=== PATIENT | male | born 1950 | race Caucasian/White ===

== ENCOUNTER 2018-10-15 15:35 | Outpatient (REF) | payer MEDICARE, BC, SELFPAY ==
[2018-10-15 21:49] LABS: HCT 30.7 % (40.0-50.0); HGB 9.6 g/dL (13.5-17.5); Mean Corp. HGB Concentration 31.3 g/dL (32.0-36.0); Mean Corpuscular Volume 92.7 fL (80-95); Mean Platelet Volume 9.8 fL (8.0-11.0); RBC 3.31 m/cumm (4.50-6.00); RBC Distribution Width 19.8 % (11.8-14.1); White Blood Cell Count 5.26 k/cumm (4.4-10.8)
== END 2018-10-15 15:55 ==
LOC: NCHCN 15:35
PROVIDERS: PCP Internal Medicine; Visit Provider Registered Nurse
DX: D69.6 Thrombocytopenia, unspecified (principal)
CPT/HCPCS: 85027

== ENCOUNTER 2019-05-19 09:08 | Outpatient (REF) | payer MEDICARE, BC, SELFPAY ==
[2019-05-19 21:14] LABS: HGB 12.3 g/dL (13.5-17.5); Mean Corp. HGB Concentration 33.2 g/dL (32.0-36.0); Mean Corpuscular Hemoglobin 29.6 pg (27.0-33.0); Mean Corpuscular Volume 88.9 fL (80-95); Mean Platelet Volume 9.1 fL (8.0-11.0); Platelet Count 243 x1000/uL (130-400); RBC 4.16 m/cumm (4.50-6.00); RBC Distribution Width 16.1 % (11.8-14.1); White Blood Cell Count 9.91 k/cumm (4.4-10.8)
[2019-05-19 21:29] LABS: ALT 40 U/L (16-63); AST 48 U/L (15-37); Albumin 3.7 g/dL (3.4-5.0); Alkaline Phosphatase 128 U/L (46-116); Anion Gap 14.2 mmol/L (3-11); BUN 22 mg/dL (7-18); Bilirubin, Total 0.3 mg/dL (0.2-1.0); CO2 23.8 mmol/L (21.0-32.0); CREATININE 1.61 mg/dL (0.70-1.30); Calcium 8.9 mg/dL (8.5-10.1); Chloride 102 mmol/L (98-107); Estimated GFR 43.02 (mL/min/1.73m2); Glucose 114 mg/dL (74-106); Sodium 140 mmol/L (136-145)
[2019-05-19 21:31] LABS: Prothrombin Time 9.9 sec (9.3-11.0)
== END 2019-05-19 09:28 ==
LOC: NCHCN 09:08
PROVIDERS: PCP Internal Medicine; Visit Provider Nurse Practitioner Family
DX: D64.9 Anemia, unspecified (principal); K70.30 Alcoholic cirrhosis of liver without ascites; F10.20 Alcohol dependence, uncomplicated
CPT/HCPCS: 80053; 85027; 85610

== ENCOUNTER 2019-06-30 11:30 | Outpatient (REF) | payer MEDICARE, BC, SELFPAY ==
[2019-06-30 20:40] LABS: Abs Immature Grans 0.07 k/cumm (0.0-0.09); Absolute Basophil Count 0.02 k/cumm (0.0-0.2); Absolute Eosinophil Count 0.08 k/cumm (0.0-0.7); Absolute Lymphocyte Count 0.62 k/cumm (1.2-3.4); Absolute Monocyte Count 0.64 k/cumm (0.11-0.7); Absolute Neutrophil Count 4.05 k/cumm (1.2-6.7); Basophils % 0.4; Eosinophils % 1.5; HCT 35.5 % (40.0-50.0); HGB 11.5 g/dL (13.5-17.5); Immature Grans % 1.3 %; Lymphocytes % 11.3; Mean Corp. HGB Concentration 32.4 g/dL (32.0-36.0); Mean Corpuscular Hemoglobin 29.9 pg (27.0-33.0); Mean Corpuscular Volume 92.2 fL (80-95); Mean Platelet Volume 8.9 fL (8.0-11.0); Monocytes % 11.7; Neutrophils % 73.8; Platelet Count 182 x1000/uL (130-400); RBC 3.85 m/cumm (4.50-6.00); RBC Distribution Width 16.3 % (11.8-14.1); White Blood Cell Count 5.48 k/cumm (4.4-10.8)
[2019-06-30 20:55] LABS: ALT 44 U/L (16-63); AST 41 U/L (15-37); Albumin 3.5 g/dL (3.4-5.0); Alkaline Phosphatase 147 U/L (46-116); Anion Gap 8.8 mmol/L (3-11); BUN 18 mg/dL (7-18); Bilirubin, Total 0.8 mg/dL (0.2-1.0); CO2 27.2 mmol/L (21.0-32.0); CREATININE 1.55 mg/dL (0.70-1.30); Calcium 9.8 mg/dL (8.5-10.1); Chloride 101 mmol/L (98-107); Estimated GFR 44.95 (mL/min/1.73m2); Glucose 130 mg/dL (74-106); Magnesium 1.6 mg/dL (1.8-2.4); Potassium 3.7 mmol/L (3.5-5.1); Sodium 137 mmol/L (136-145); Total Protein 7.5 g/dL (6.4-8.2)
== END 2019-06-30 11:50 ==
LOC: NCHCN 11:30
PROVIDERS: PCP Internal Medicine; Visit Provider Nurse Practitioner Family
DX: E83.42 Hypomagnesemia (principal); N17.9 Acute kidney failure, unspecified; F10.20 Alcohol dependence, uncomplicated; K70.30 Alcoholic cirrhosis of liver without ascites
CPT/HCPCS: 80053; 83735; 85025

== ENCOUNTER 2019-09-08 09:41 | Outpatient (REF) | payer MEDICARE, BC, SELFPAY ==
[2019-09-08 19:34] LABS: HCT 37.2 % (40.0-50.0); HGB 11.9 g/dL (13.5-17.5); Mean Corpuscular Hemoglobin 29.5 pg (27.0-33.0); Mean Corpuscular Volume 92.3 fL (80-95); Mean Platelet Volume 9.4 fL (8.0-11.0); Platelet Count 175 x1000/uL (130-400); RBC 4.03 m/cumm (4.50-6.00); RBC Distribution Width 15.8 % (11.8-14.1); White Blood Cell Count 4.09 k/cumm (4.4-10.8)
[2019-09-08 19:54] LABS: ALT 48 U/L (16-63); AST 45 U/L (15-37); Albumin 3.6 g/dL (3.4-5.0); Alkaline Phosphatase 167 U/L (46-116); Anion Gap 12.8 mmol/L (3-11); BUN 22 mg/dL (7-18); Bilirubin, Total 0.6 mg/dL (0.2-1.0); CO2 25.2 mmol/L (21.0-32.0); CREATININE 1.59 mg/dL (0.70-1.30); Calcium 9.3 mg/dL (8.5-10.1); Chloride 99 mmol/L (98-107); Estimated GFR 43.64 (mL/min/1.73m2); Glucose 203 mg/dL (74-106); Magnesium 1.7 mg/dL (1.8-2.4); Potassium 3.9 mmol/L (3.5-5.1); Sodium 137 mmol/L (136-145); Total Protein 7.6 g/dL (6.4-8.2)
== END 2019-09-08 10:01 ==
LOC: NCHCN 09:41
PROVIDERS: PCP Nurse Practitioner Family; Visit Provider Nurse Practitioner Family
DX: E83.42 Hypomagnesemia (principal); D64.9 Anemia, unspecified; N17.9 Acute kidney failure, unspecified; F10.20 Alcohol dependence, uncomplicated; K70.30 Alcoholic cirrhosis of liver without ascites
CPT/HCPCS: 80053; 85027; 83735

== ENCOUNTER 2019-09-29 11:13 | Outpatient (REF) | payer MEDICARE, BC, SELFPAY ==
[2019-09-29 19:52] LABS: ALT 82 U/L (16-63); AST 69 U/L (15-37); Albumin 3.5 g/dL (3.4-5.0); Alkaline Phosphatase 193 U/L (46-116); BUN 20 mg/dL (7-18); Bilirubin, Total 1.1 mg/dL (0.2-1.0); CREATININE 1.43 mg/dL (0.70-1.30); Calcium 8.9 mg/dL (8.5-10.1); Chloride 100 mmol/L (98-107); Estimated GFR 49.33 (mL/min/1.73m2); Glucose 169 mg/dL (74-106); Potassium 3.2 mmol/L (3.5-5.1); Sodium 138 mmol/L (136-145); Total Protein 7.4 g/dL (6.4-8.2)
== END 2019-09-29 11:33 ==
LOC: NCHCN 11:13
PROVIDERS: PCP Nurse Practitioner Family; Visit Provider Nurse Practitioner Family
DX: E11.9 Type 2 diabetes mellitus without complications (principal); I10 Essential (primary) hypertension; F10.20 Alcohol dependence, uncomplicated; K70.30 Alcoholic cirrhosis of liver without ascites
CPT/HCPCS: 80053; 83036

== ENCOUNTER 2019-10-13 08:46 | Outpatient (REF) | payer MEDICARE, BC, SELFPAY ==
[2019-10-13 20:33] LABS: Abs Immature Grans 0.05 10^3/uL (0.0-0.06); Absolute Basophil Count 0.01 10^3/uL (0.0-0.2); Absolute Eosinophil Count 0.02 10^3/uL (0.0-0.7); Absolute Lymphocyte Count 0.29 10^3/uL (1.2-3.4); Absolute Monocyte Count 0.19 10^3/uL (0.1-0.8); Absolute Neutrophil Count 3.06 10^3/uL (1.2-6.7); Basophils % 0.3; Eosinophils % 0.6; HCT 33.4 % (40.0-50.0); HGB 10.9 g/dL (13.5-17.5); Immature Grans % 1.4; MCH 30.4 pg (27.0-33.0); MCHC 32.6 % (32.0-36.0); MPV 11.3 fL (8.0-11.0); Monocytes % 5.2; Neutrophils % 84.5; Nucleated RBC 0 %; RBC 3.59 10^6/uL (4.36-5.78); RDW 17.1 % (11.8-14.1); RDW-SD 57.9 fL; WBC 3.62 10^3/uL (4.4-10.8)
[2019-10-13 20:59] LABS: Platelet Count 78 10^3/uL (130-400)
[2019-10-13 21:10] LABS: ALT 70 U/L (16-63); AST 93 U/L (15-37); Albumin 3.6 g/dL (3.4-5.0); Alkaline Phosphatase 230 U/L (46-116); Anion Gap 13.2 mmol/L (3-11); BUN 21 mg/dL (7-18); CO2 22.8 mmol/L (21.0-32.0); CREATININE 1.44 mg/dL (0.70-1.30); Chloride 99 mmol/L (98-107); Estimated GFR 48.93 (mL/min/1.73m2); Glucose 199 mg/dL (74-106); Potassium 4.3 mmol/L (3.5-5.1); Sodium 135 mmol/L (136-145)
== END 2019-10-13 09:06 ==
LOC: NCHCN 08:46
PROVIDERS: PCP Nurse Practitioner Family; Visit Provider Nurse Practitioner Family
DX: K70.30 Alcoholic cirrhosis of liver without ascites (principal); E87.6 Hypokalemia; I10 Essential (primary) hypertension; N18.3 Chronic kidney disease, stage 3 (moderate)
CPT/HCPCS: 80053; 85025

== ENCOUNTER 2019-11-11 09:30 | Outpatient (REF) | payer MEDICARE, BC, SELFPAY ==
[2019-11-11 20:52] LABS: Abs Immature Grans 0.03 10^3/uL (0.0-0.06); Absolute Basophil Count 0.02 10^3/uL (0.0-0.2); Absolute Eosinophil Count 0.05 10^3/uL (0.0-0.7); Absolute Lymphocyte Count 0.61 10^3/uL (1.2-3.4); Absolute Monocyte Count 0.64 10^3/uL (0.1-0.8); Absolute Neutrophil Count 2.23 10^3/uL (1.2-6.7); Basophils % 0.6; Eosinophils % 1.4; HCT 35.6 % (40.0-50.0); HGB 11.7 g/dL (13.5-17.5); Immature Grans % 0.8; MCH 30.3 pg (27.0-33.0); MCHC 32.9 % (32.0-36.0); MCV 92.2 fL (80-95); MPV 9.4 fL (8.0-11.0); Monocytes % 17.9; Neutrophils % 62.3; Nucleated RBC 0 %; Platelet Count 143 10^3/uL (130-400); RBC 3.86 10^6/uL (4.36-5.78); RDW 16.4 % (11.8-14.1); RDW-SD 55.5 fL; WBC 3.58 10^3/uL (4.4-10.8)
[2019-11-11 21:45] LABS: ALT 61 U/L (16-63); AST 53 U/L (15-37); Albumin 3.8 g/dL (3.4-5.0); Alkaline Phosphatase 194 U/L (46-116); Anion Gap 9.7 mmol/L (3-11); BUN 21 mg/dL (7-18); Bilirubin, Total 0.7 mg/dL (0.2-1.0); CO2 25.3 mmol/L (21.0-32.0); CREATININE 1.48 mg/dL (0.70-1.30); Calcium 9.6 mg/dL (8.5-10.1); Chloride 102 mmol/L (98-107); Estimated GFR 47.41 (mL/min/1.73m2); Glucose 144 mg/dL (74-106); Potassium 3.9 mmol/L (3.5-5.1); Sodium 137 mmol/L (136-145); Total Protein 8.1 g/dL (6.4-8.2); Vitamin B12 1219 pg/mL (193-986)
[2019-11-11 21:48] LABS: Folate > 20.0 ng/mL (8.6-20.0)
== END 2019-11-11 09:50 ==
LOC: NCHCN 09:30
PROVIDERS: PCP Nurse Practitioner Family; Visit Provider Nurse Practitioner Family
DX: D64.9 Anemia, unspecified (principal); K70.30 Alcoholic cirrhosis of liver without ascites
CPT/HCPCS: 80053; 82607; 82746; 85025

== ENCOUNTER 2020-01-11 16:48 | Outpatient (REF) | payer MEDICARE, BC, SELFPAY ==
[2020-01-11 21:49] LABS: HCT 32.1 % (40.0-50.0); HGB 10.3 g/dL (13.5-17.5); MCH 30.7 pg (27.0-33.0); MCHC 32.1 % (32.0-36.0); MCV 95.5 fL (80-95); Platelet Count 119 10^3/uL (130-400); RBC 3.36 10^6/uL (4.36-5.78); RDW 15.7 % (11.8-14.1); RDW-SD 55.6 fL; WBC 3.07 10^3/uL (4.4-10.8)
[2020-01-11 22:53] LABS: ALT 67 U/L (16-63); AST 53 U/L (15-37); Albumin 3.6 g/dL (3.4-5.0); Alkaline Phosphatase 229 U/L (46-116); Anion Gap 7.6 mmol/L (3-11); BUN 26 mg/dL (7-18); Bilirubin, Total 0.5 mg/dL (0.2-1.0); CO2 27.4 mmol/L (21.0-32.0); CREATININE 1.88 mg/dL (0.70-1.30); Calcium 9.6 mg/dL (8.5-10.1); Chloride 100 mmol/L (98-107); Estimated GFR 35.86 (mL/min/1.73m2); Glucose 135 mg/dL (74-106); Magnesium 1.7 mg/dL (1.8-2.4); Potassium 4.1 mmol/L (3.5-5.1); Sodium 135 mmol/L (136-145); Total Protein 7.6 g/dL (6.4-8.2)
== END 2020-01-11 17:08 ==
LOC: NCHCN 16:48
PROVIDERS: PCP Nurse Practitioner Family; Visit Provider Nurse Practitioner Family
DX: F10.20 Alcohol dependence, uncomplicated (principal); D64.9 Anemia, unspecified; E83.42 Hypomagnesemia
CPT/HCPCS: 80053; 85027; 83735

== ENCOUNTER 2020-01-21 20:59 | Outpatient (REF) | payer MEDICARE, BC, SELFPAY ==
[2020-01-21 21:49] LABS: ALT 38 U/L (16-63); AST 41 U/L (15-37); Albumin 3.6 g/dL (3.4-5.0); Alkaline Phosphatase 203 U/L (46-116); Anion Gap 12.2 mmol/L (3-11); BUN 19 mg/dL (7-18); Bilirubin, Total 0.4 mg/dL (0.2-1.0); CO2 22.8 mmol/L (21.0-32.0); CREATININE 1.53 mg/dL (0.70-1.30); Chloride 103 mmol/L (98-107); Estimated GFR 45.49 (mL/min/1.73m2); Glucose 101 mg/dL (74-106); Potassium 3.9 mmol/L (3.5-5.1); Sodium 138 mmol/L (136-145); Total Protein 7.9 g/dL (6.4-8.2)
== END 2020-01-21 21:19 ==
LOC: NCHCN 20:59
PROVIDERS: PCP Nurse Practitioner Family; Visit Provider Nurse Practitioner Family
DX: K70.30 Alcoholic cirrhosis of liver without ascites (principal); N18.30 Chronic kidney disease, stage 3 unspecified
CPT/HCPCS: 80053

== ENCOUNTER 2020-12-07 09:27 | Outpatient (REF) | payer MEDICARE, BC, SELFPAY ==
[2020-12-07 15:39] LABS: ALT 28 U/L (16-63); AST 35 U/L (15-37); Alkaline Phosphatase 137 U/L (46-116); Anion Gap 13.4 mmol/L (3-11); BUN 23 mg/dL (7-18); Bilirubin, Total 0.7 mg/dL (0.2-1.0); CO2 26.6 mmol/L (21.0-32.0); CREATININE 1.3 mg/dL (0.70-1.30); Calcium 9.5 mg/dL (8.5-10.1); Chloride 102 mmol/L (98-107); Glucose 146 mg/dL (74-106); Potassium 3.7 mmol/L (3.5-5.1); Sodium 142 mmol/L (136-145); Total Protein 8.3 g/dL (6.4-8.2)
[2020-12-07 15:46] LABS: Bacteria Negative HPF (Negative); C & S Indicated? No; Casts Negative LPF (Negative); Crystals Negative HPF (Negative); Epithelial Cells Negative HPF (Negative); Mucus Negative (Negative); Other Cells Negative (Negative); RBC 0-2 HPF (0-2); WBC 0-2 HPF (0-5)
[2020-12-07 15:48] LABS: COMMENT (LAB VIEW ONLY) 106.15 mg/dL
[2020-12-07 20:56] LABS: Calculated LDL 75 mg/dL (<100); Cholesterol 206 mg/dL (<200); HDL Cholesterol 108 mg/dL (40-60); Triglyceride 119 mg/dL (<150)
[2020-12-07 22:55] LABS: PSA, Screening 1.3 ng/mL (0.0-4.5)
[2020-12-08 09:37] LABS: HBs Antibody, Quant <3.1 mIU/mL (See Note); Hepatitis B Surface Ab Negative (See Note)
[2020-12-08 10:33] LABS: Hepatitis C Ab w Rflx HCV PCR Negative (Negative)
== END 2020-12-07 09:28 | disposition home or self-care (01) ==
LOC: NCHCN 09:27
PROVIDERS: PCP Nurse Practitioner Family; Visit Provider Nurse Practitioner Family
DX: R35.0 Frequency of micturition; K70.30 Alcoholic cirrhosis of liver without ascites; R39.9 Unspecified symptoms and signs involving the genitourinary system; Z00.00 Encounter for general adult medical examination without abnormal findings; Z12.5 Encounter for screening for malignant neoplasm of prostate; Z11.59 Encounter for screening for other viral diseases
CPT/HCPCS: 80053; 80061; 84153; 86706; 86803; 81015; 82043; 82570; 83001; 85025

== ENCOUNTER 2020-12-14 10:07 | Outpatient (REF) | payer MEDICARE, BC, SELFPAY ==
[2020-12-14 15:09] LABS: Total Protein 8.5 g/dL (6.4-8.2)
== END 2020-12-14 10:08 | disposition home or self-care (01) ==
LOC: NCHCN 10:07
PROVIDERS: PCP Nurse Practitioner Family; Visit Provider Nurse Practitioner Family
DX: K70.30 Alcoholic cirrhosis of liver without ascites (principal)
CPT/HCPCS: 85027; 84155

== ENCOUNTER 2021-03-08 18:54 | Outpatient (REF) | payer MEDICARE, SELFPAY ==
[2021-03-08 15:46] LABS: COMMENT (LAB VIEW ONLY) 161.44 mg/dL
[2021-03-08 15:49] LABS: Microalb ug/mg Crea 371.6 ug/mg Cr
== END 2021-03-08 18:55 | disposition home or self-care (01) ==
LOC: NCHCN 18:54
PROVIDERS: PCP Nurse Practitioner Family; Visit Provider Nurse Practitioner Family
DX: E11.9 Type 2 diabetes mellitus without complications (principal); I10 Essential (primary) hypertension; N18.30 Chronic kidney disease, stage 3 unspecified; K70.30 Alcoholic cirrhosis of liver without ascites
CPT/HCPCS: 82043; 82570

== ENCOUNTER 2022-03-12 13:06 | Outpatient (REF) | payer MEDICARE, SELFPAY ==
[2022-03-12 17:26] LABS: COMMENT (LAB VIEW ONLY) 77.24 mg/dL
[2022-03-12 17:30] LABS: Microalb ug/mg Crea 345.3 ug/mg Cr
== END 2022-03-12 13:07 | disposition home or self-care (01) ==
LOC: NCHCN 13:06
PROVIDERS: PCP Nurse Practitioner Family; Visit Provider Nurse Practitioner Family
DX: E11.9 Type 2 diabetes mellitus without complications (principal)
CPT/HCPCS: 82043; 82570

== ENCOUNTER 2022-08-16 14:54 | Outpatient (REF) | payer MEDICARE, SELFPAY ==
[2022-08-16 15:49] LABS: Abs Immature Grans 0.02 10^3/uL (0.0-0.06); Absolute Basophil Count 0.03 10^3/uL (0.0-0.2); Absolute Monocyte Count 0.49 10^3/uL (0.1-0.8); Absolute Neutrophil Count 1.97 10^3/uL (1.2-6.7); Eosinophils % 3.2; HCT 34.8 % (40.0-50.0); HGB 11.9 g/dL (13.5-17.5); Immature Grans % 0.6; Lymphocytes % 16.1; MCH 32.3 pg (27.0-33.0); MCHC 34.2 % (32.0-36.0); MCV 95 fL (80-95); MPV 9.6 fL (8.0-11.0); Monocytes % 15.8; Neutrophils % 63.3; Platelet Count 105 10^3/uL (130-400); RBC 3.68 10^6/uL (4.36-5.78); RDW-SD 52.6 fL; WBC 3.11 10^3/uL (4.4-10.8)
[2022-08-16 16:05] LABS: ALT 18 U/L (16-63); AST 25 U/L (15-37); Albumin 3.5 g/dL (3.4-5.0); Alkaline Phosphatase 124 U/L (46-116); Anion Gap 9.1 mmol/L (3-11); BUN 14 mg/dL (7-18); Bilirubin, Total 0.5 mg/dL (0.2-1.0); CO2 25.9 mmol/L (21.0-32.0); CREATININE 1.4 mg/dL (0.70-1.30); Calcium 8.8 mg/dL (8.5-10.1); Calculated LDL 86 mg/dL (<100); Chloride 103 mmol/L (98-107); Cholesterol 221 mg/dL (<200); Estimated GFR 54.07 (mL/min/1.73m2); Glucose 168 mg/dL (74-106); HDL Cholesterol 129 mg/dL (40-60); Magnesium 1.7 mg/dL (1.8-2.4); Potassium 3.1 mmol/L (3.5-5.1); Sodium 138 mmol/L (136-145); Total Protein 7.1 g/dL (6.4-8.2); Triglyceride 32 mg/dL (<150)
== END 2022-08-16 14:55 | disposition home or self-care (01) ==
LOC: NCHCN 14:54
PROVIDERS: PCP Nurse Practitioner Family; Visit Provider Family Medicine
DX: I10 Essential (primary) hypertension (principal); D64.9 Anemia, unspecified; Z13.220 Encounter for screening for lipoid disorders; N18.31 Chronic kidney disease, stage 3a
CPT/HCPCS: 80053; 80061; 83735; 85025

== ENCOUNTER 2022-08-23 21:07 | Outpatient (REF) | payer MEDICARE, SELFPAY ==
[2022-08-23 21:33] LABS: Iron 227 ug/dL (65-175); Total Iron Binding Capacity 311 ug/dL (250-450); Transferrin Sat 73 % (20-55)
[2022-08-23 21:45] LABS: Ferritin 169 ng/mL (26-388)
== END 2022-08-23 21:08 | disposition home or self-care (01) ==
LOC: NCHCN 21:07
PROVIDERS: PCP Nurse Practitioner Family; Visit Provider Family Medicine
DX: D64.9 Anemia, unspecified (principal)
CPT/HCPCS: 82728; 83540; 83550

== ENCOUNTER 2023-02-19 14:57 | Outpatient (REF) | payer MEDICARE, SELFPAY ==
[2023-02-19 21:25] LABS: Abs Immature Grans 0.03 10^3/uL (0.0-0.06); Absolute Basophil Count 0.01 10^3/uL (0.0-0.2); Absolute Eosinophil Count 0.05 10^3/uL (0.0-0.7); Absolute Lymphocyte Count 0.26 10^3/uL (1.2-3.4); Absolute Monocyte Count 0.39 10^3/uL (0.1-0.8); Absolute Neutrophil Count 2.65 10^3/uL (1.2-6.7); Basophils % 0.3; Eosinophils % 1.5; HCT 35.2 % (40.0-50.0); Immature Grans % 0.9; Lymphocytes % 7.7; MCHC 34.1 % (32.0-36.0); MCV 94 fL (80-95); MPV 8.9 fL (8.0-11.0); Monocytes % 11.5; Neutrophils % 78.1; Platelet Count 109 10^3/uL (130-400); RBC 3.75 10^6/uL (4.36-5.78); RDW 13.6 % (11.8-14.1); RDW-SD 47.3 fL; WBC 3.39 10^3/uL (4.4-10.8)
[2023-02-19 21:38] LABS: ALT 32 U/L (16-63); AST 38 U/L (15-37); Albumin 3.8 g/dL (3.4-5.0); Alkaline Phosphatase 159 U/L (46-116); Anion Gap 12.9 mmol/L (3-11); BUN 19 mg/dL (7-18); Bilirubin, Total 0.7 mg/dL (0.2-1.0); CO2 25.1 mmol/L (21.0-32.0); CREATININE 1.4 mg/dL (0.70-1.30); Calcium 9.5 mg/dL (8.5-10.1); Chloride 102 mmol/L (98-107); Estimated GFR 53.74 (mL/min/1.73m2); Glucose 125 mg/dL (74-106); Magnesium 2.1 mg/dL (1.8-2.4); Potassium 3.9 mmol/L (3.5-5.1); Sodium 140 mmol/L (136-145); Total Protein 7.8 g/dL (6.4-8.2)
[2023-02-19 21:51] LABS: Calculated LDL 71 mg/dL (<100); Cholesterol 228 mg/dL (<200); HDL Cholesterol 149 mg/dL (40-60); Triglyceride 41 mg/dL (<150)
== END 2023-02-19 14:58 | disposition home or self-care (01) ==
LOC: NCHCN 14:57
PROVIDERS: PCP Nurse Practitioner Family; Visit Provider Family Medicine
DX: E78.5 Hyperlipidemia, unspecified (principal); E83.42 Hypomagnesemia
CPT/HCPCS: 80053; 80061; 83735; 85025

== ENCOUNTER 2023-02-25 15:14 | Outpatient (REF) | payer MEDICARE, SELFPAY ==
[2023-02-25 16:34] LABS: Microalb ug/mg Crea 498.3 ug/mg Cr
== END 2023-02-25 15:15 | disposition home or self-care (01) ==
LOC: NCHCN 15:14
PROVIDERS: PCP Nurse Practitioner Family; Visit Provider Family Medicine
DX: E11.9 Type 2 diabetes mellitus without complications (principal)
CPT/HCPCS: 82043; 82570

== ENCOUNTER 2024-01-29 08:48 | Outpatient (REF) | payer MEDICARE, SELFPAY ==
[2024-01-29 14:51] LABS: Prothrombin Time 9.8 sec (9.1-11.1)
== END 2024-01-29 08:49 | disposition home or self-care (01) ==
LOC: NCHCN 08:48
PROVIDERS: PCP Nurse Practitioner Family; Visit Provider Family Medicine
DX: R16.0 Hepatomegaly, not elsewhere classified (principal)
CPT/HCPCS: 85610

== ENCOUNTER 2024-08-23 13:14 | Observation (INO) | payer MEDICARE, SELFPAY ==
[2024-08-23] VITALS (28 sets, daily range): BP systolic 90–138; BP diastolic 53–71; PULSE 75–85; RESP 12–21; TEMP 35.8–36.8; O2SAT 90–100
[2024-08-23 13:48] LABS: Abs Immature Grans 0.13 10^3/uL (0.0-0.06); HCT 35.3 % (40.0-50.0); HGB 11.6 g/dL (13.5-17.5); Immature Grans % 1.6 %; MCH 31.7 pg (27.0-33.0); MCHC 32.9 % (32.0-36.0); MCV 96 fL (80-95); MPV 8.9 fL (8.0-11.0); Platelet Count 192 10^3/uL (130-400); RBC 3.66 10^6/uL (4.36-5.78); RDW 14.9 % (11.8-14.1); RDW-SD 51.8 fL; WBC 7.89 10^3/uL (4.4-10.8)
[2024-08-23] MEDS: Normal Saline 1,000 ML 1000 ML IV ×2 (13:52→15:06)
[2024-08-23] MEDS: Ondansetron 4 MG/2 ML VIAL IVP (13:54)
[2024-08-23 14:01] LABS: INR 1.2 (0.9-1.1); PTT Activated 19.8 sec (20.6-30.2); Prothrombin Time 11.6 sec (9.1-11.1)
[2024-08-23 14:07] LABS: ALT 17 U/L (16-63); AST 30 U/L (15-37); Albumin 3.0 g/dL (3.4-5.0); Alkaline Phosphatase 199 U/L (46-116); Anion Gap 29.3 mmol/L (3-11); BUN 39 mg/dL (7-18); Bilirubin, Total 1.3 mg/dL (0.2-1.0); CO2 12.7 mmol/L (21.0-32.0); Calcium 9.1 mg/dL (8.5-10.1); Chloride 93 mmol/L (98-107); Estimated GFR 23.24 (mL/min/1.73m2); Glucose 104 mg/dL (74-106); Magnesium 2.3 mg/dL (1.8-2.4); Potassium 3.7 mmol/L (3.5-5.1); Sodium 135 mmol/L (136-145); Total Protein 7.2 g/dL (6.4-8.2)
[2024-08-23] MEDS: Pantoprazole 40 MG VIAL 80 MG IVP (14:21)
[2024-08-23 14:31] LABS: Lipase 33 U/L (<78)
--- NOTE | 2024-08-23 16:26 | W.PM.HP.N ---
Date of service: 08/23/24 Time of Service: 16:26 Assessment and Plan Assessment and plan (1) Upper GI bleed: Status: Acute Assessment and plan: In the setting of cirrhosis and active alcohol use. He is not being treated for portal HTN, but did have this in the past. Current platelets not low, suggesting lack of significant portal HTN, but recent plts were a little low. Given lack of any bleeding during observation here, h/h being above recent baseline, I think okay to keep here per ED request. Will request surgical consult to follow, but he may be better off with EGD at tertiary care. With possible portal HTN, start octreotide. Continue high dose PPI Follow anemia (2) Anemia: Status: Chronic Assessment and plan: blood loss. Repeat h/h now after hydration (3) Acute kidney injury superimposed on CKD: Status: Acute Assessment and plan: A/w dehydration with vomiting and GI bleed. Significant AG acidosis/lactate. Repeat after the 2 liters hydration. Monitor urine output. (4) Atrial fibrillation: Status: Chronic Assessment and plan: Rate not elevated. Monitor on telemetry. Resume oral rate control when taking po, can use prn metoprolol IV this afternoon/evening (5) Alcohol use disorder: Status: Acute Assessment and plan: Discussed risk of any use. He voices understanding. Offer treatment prior to d/c. H/o naltrexone use. (6) Cirrhosis, alcoholic: Assessment and plan: Compenstated clinically with Child Barker 6/class A. As above, not clear if he has current portal HTN. He is on selective beta clara, suggesting he does not have portal HTN currently. (7) BPH loc w urin obs/LUTS: Assessment and plan: Monitor bladder volume with RADHA to assure not obstructing. Resume tamsulosin when taking po (8) DVT prophylaxis: Status: Acute Assessment and plan: SCDs/teds with active bleed History of Present Illness History of Present Illness Chief Complaint: vomiting with blood Narrative: 73 yo M with history of tongue/tonsil cancer, alcohol use disorder, alcoholic cirrhosis, hepatocellular carcinoma s/p laproscopic partial hepatectomy and ablation at [facility] 07/20/24 who presented to the ED today after multiple episodes of vomiting with some blood mixed in. This started yesterday afternoon. Initially brown vomit, but red blood mixed in. No back/coffee grounds. Vomited 4 times overnight, decided to come in this morning. He hasn't vomited since arriving, feels a little better. He does no have abdominal pain other than some RUQ pain in the area of his surgery a month ago. He does not have chest pain, shortness of breath, or dizziness. He has not had blood in stool or black stools. He does admit to resuming alcohol, drinking 2-3 beers a day, last yesterday. He denies history of vomiting blood, but there is a mention of gastric varices on his PCP record. CT A/P from 2016 did note varices. He states he takes his medication, but hasn't been able to take it since he has been sick. In the ED he was treated with pantoprazole and 2 liters NS. Of note, his last documented labs from 07/20 at [facility] include hgb 9.6, platelets 125, CO2 19, Cr 1.23, and AST/ALT of 275/84. PFSH All Active Problems (Updated 08/23/24 @ 16:48 by Vazquez Pardo) GERD (gastroesophageal reflux disease) (Chronic) DVT prophylaxis (Acute) Acute kidney injury superimposed on CKD (Acute) Anemia (Chronic) Upper GI bleed (Acute) Alcohol use disorder (Acute) Atrial fibrillation (Chronic) Medical History (Updated 08/23/24 @ 16:48 by Vazquez Pardo) Squamous cell carcinoma of tonsils Spinal stenosis Hypertension BPH loc w urin obs/LUTS CKD stage 3a, GFR 45-59 ml/min Hepatocellular carcinoma Gastric varices Cirrhosis, alcoholic Surgical History (Updated 08/23/24 @ 16:44 by Vazquez Pardo) Status post neck dissection tonsilectomy and resection of cancer S/P hernia repair History of liver excision laproscopic partial hepatectomy for HCC 07/20/24 [facility] Social History (Updated 08/23/24 @ 16:44 by Vazquez Pardo) Smoking/Tobacco Use Status: Never Smoking risk assessment performed?: Yes Alcohol Intake: current Alcohol Intake frequency: 0-2 drinks per day Drug use: Occasionally Substance use type: marijuana Additional Social history: Lives with in [facility] Allergies and Home Medications Allergies Allergy/AdvReac Type Severity Reaction Status Date / Time No Known Allergies Allergy Unverified 09/23/15 14:59 Home Medications ?Medication ?Instructions ?Recorded ?Confirmed ?Type diltiazem HCl 360 mg 360 mg PO DAILY 08/23/24 08/23/24 History capsule,extended release 24 hr metoprolol succinate 100 mg 100 mg PO DAILY 08/23/24 08/23/24 History tablet,extended release 24 hr pantoprazole 40 mg tablet,delayed 40 mg PO DAILY 08/23/24 08/23/24 History release potassium chloride 20 mEq oral 20 meq PO DAILY 08/23/24 08/23/24 History packet (Mianor-Esvin) tamsulosin 0.4 mg capsule 0.4 mg PO HS 08/23/24 08/23/24 History valsartan 320 mg tablet 320 mg PO DAILY 08/23/24 08/23/24 History Exam Narrative Exam Narrative: GEN: Alert and oriented x 4,cachectic, pleasant and cooperative, gives linear history. No acute distress at rest. HEENT: Head atraumatic. Conjunctiva clear, no icterus. PEERL, EOMI. no rhinorrhea. MMM, edentulous with dentures, OP benign. Neck is supple with surgical scars and defects but masses or lymphadenopathy, trachea midline LUNGS: CTAB with normal effort CV: RRR with no murmurs, gallops, or rubs. ABD: active bowel sounds, soft,nondistended, mildly tender in RUQ to deep palpation. No masses. No fluid wave. EXT: no cyanosis, clubbing, or edema MSK: No joint redness or swelling NEURO: CN 2-12 grossly intact. Normal movement of 4 extremities. Normal speech and coordination. No tremor SKIN: No rashes or open wounds. PSYCH: normal mood and affect, nl thought process Results Labs 08/23/24 13:33 08/23/24 13:33 Labs: Laboratory Results - last 24 hr 08/23/24 13:33 WBC 7.89 RBC 3.66 L Hgb 11.6 L Hct 35.3 L MCV 96 H MCH 31.7 MCHC 32.9 RDW 14.9 H Plt Count 192 MPV 8.9 Immature Gran % 1.6 Neutrophils % 85.2 Lymphocytes % 6.8 Monocytes % 6.3 Eosinophils % 0.0 Basophils % 0.1 Nucleated RBC % 0.0 Absolute Neutrophils 6.71 H Absolute Lymphocytes 0.54 L Absolute Monocytes 0.50 Absolute Eosinophils 0.00 Absolute Basophils 0.01 PT 11.6 H INR 1.2 H APTT 19.8 L VBG Lactate 2.4 H* Sodium 135 L Potassium 3.7 Chloride 93 L Carbon Dioxide 12.7 L Anion Gap 29.3 H BUN 39 H Creatinine 2.8 H Est GFR (CKD-EPI 2020) 23.24 Glucose 104 Calcium 9.1 Magnesium 2.3 Total Bilirubin 1.3 H AST 30 ALT 17 Alkaline Phosphatase 199 H Total Protein 7.2 Albumin 3.0 L Lipase 33 Ethyl Alcohol < 3.0 ABO/Rh A Positive Antibody Screen NEGATIVE Last Vital Signs Temp 36.3 C L 08/23/24 13:13 Pulse 82 08/23/24 16:00 Resp 17 08/23/24 16:01 BP 120/70 08/23/24 16:00 Pulse Ox 97 08/23/24 15:50 PAWSS Have you Been Recently Intoxicated or Drunk Within the Last 30 days?: No Have you Ever Experienced Previous Episodes of Alcohol Withdrawal?: Yes Have you ever Experienced Withdrawal Seizures?: Yes Have you ever Experienced Delirium Tremens(DT)s?: Yes Have you ever undergone Alcohol Rehabilitation Treatment (i.e, inpt ot outpatient treatment programs)?: Yes Have you ever Experienced Blackouts?: Yes Have you ever Combined Alcohol with other Downers within the last 90 days?: No Have you ever Combined Alcohol with any other Substance of Abuse during the last 90 days?: No Result: 5 Time Spent Time spent with Patient: >75 minutes Time was spent: preparing to see the patient(eg.review tests), obtaining and/or reviewing separately otained hiistory, ordering medications,tests, procedures, referring, communicating with other health sub acute care nurse, indepentently interpreting results, counseling the patient and care coordination
--- NOTE | 2024-08-23 16:49 | W.ED.GENAD ---
Discharge Plan Discharge Details Chief Complaint: Nausea/Vomit/Diar Admit Date/Time: 08/23/24 15:26 Admit Provider: Vazquez Pardo Attending Provider: Vazquez Pardo Primary Care Provider: Kelsy Hardin ED Provider: Bret Gaines Discharge Data Discharge Date/Time-TO BE ENTERED AT DEPARTURE: 08/23/24 16:42 HPI General Date/Time Provider Initiated Documentation: 08/23/24 13:35. Limitations to Documentation: no limitations. Information obtained by: patient. HPI Narrative: 73-year-old gentleman with past medical history of HCC status post resection, head neck cancer (completed radiation chemotherapy and resection) presents for evaluation of vomiting. He reports that he started vomiting last night and had persistent vomiting throughout the evening. He reports that there might have been some dark discoloration or blood tinge vomiting, but not vomiting meredith blood or clots. No change in his bowels. He has not had anything to eat or drink in over 24 hours. He denies significant abdominal pain, fever but does report chills Related Data Home Medications ?Medication ?Instructions ?Recorded ?Confirmed diltiazem HCl 360 mg 360 mg PO DAILY 08/23/24 08/23/24 capsule,extended release 24 hr metoprolol succinate 100 mg 100 mg PO DAILY 08/23/24 08/23/24 tablet,extended release 24 hr pantoprazole 40 mg tablet,delayed 40 mg PO DAILY 08/23/24 08/23/24 release potassium chloride 20 mEq oral 20 meq PO DAILY 08/23/24 08/23/24 packet (Klor-Con) tamsulosin 0.4 mg capsule 0.4 mg PO HS 08/23/24 08/23/24 valsartan 320 mg tablet 320 mg PO DAILY 08/23/24 08/23/24 Allergies Allergy/AdvReac Type Severity Reaction Status Date / Time No Known Allergies Allergy Unverified 09/23/15 14:59 General Stated Complaint: Nausea/Vomit/Diar AUNDREA: 2 Exam Narrative Exam Narrative: Review of Systems: All systems reviewed & are unremarkable except as noted in HPI and below Well-developed, chronically ill-appearing NCAT Head neck dissection changes noted RRR, hypotensive Unlabored respiratory effort, clear bilaterally Nondistended abdomen , soft nontender Course Vital Signs Vital signs: Vital Signs Temperature 36.3 C L 08/23/24 13:13 Pulse 80 08/23/24 13:13 Respiratory Rate 16 08/23/24 13:13 Blood Pressure 93/63 L 08/23/24 13:13 Pulse Oximetry 100 08/23/24 13:13 Temperature 36.3 C L 08/23/24 16:34 Temperature Source Oral 08/23/24 13:13 Pulse 82 08/23/24 16:34 Pulse 81 08/23/24 16:01 Respiratory Rate 17 08/23/24 16:34 Blood Pressure 120/70 08/23/24 16:34 Blood Pressure Mean 85 08/23/24 16:00 Pulse Oximetry 97 08/23/24 16:34 Oxygen Delivery Method Room Air 08/23/24 13:13 Oxygen Flow Rate 0 08/23/24 13:13 Lab/Test Results Lab/Test Results: Laboratory Tests Range/Units 08/23/24 13:33 WBC (4.4-10.8) 10^3/uL 7.89 RBC (4.36-5.78) 10^6/uL 3.66 L Hgb (13.5-17.5) g/dL 11.6 L Hct (40.0-50.0) % 35.3 L MCV (80-95) fL 96 H MCH (27.0-33.0) pg 31.7 MCHC (32.0-36.0) % 32.9 RDW (11.8-14.1) % 14.9 H Plt Count (130-400) 10^3/uL 192 MPV (8.0-11.0) fL 8.9 Immature Gran % % 1.6 Neutrophils % % 85.2 Lymphocytes % % 6.8 Monocytes % % 6.3 Eosinophils % % 0.0 Basophils % % 0.1 Nucleated RBC % (0.0-0.3) % 0.0 Absolute Neutrophils (1.2-6.7) 10^3/uL 6.71 H Absolute Lymphocytes (1.2-3.4) 10^3/uL 0.54 L Absolute Monocytes (0.1-0.8) 10^3/uL 0.50 Absolute Eosinophils (0.0-0.7) 10^3/uL 0.00 Absolute Basophils (0.0-0.2) 10^3/uL 0.01 PT (9.1-11.1) sec 11.6 H INR (0.9-1.1) 1.2 H APTT (20.6-30.2) sec 19.8 L VBG Lactate (<or=2.0) mmol/L 2.4 H* Sodium (136-145) mmol/L 135 L Potassium (3.5-5.1) mmol/L 3.7 Chloride (98-107) mmol/L 93 L Carbon Dioxide (21.0-32.0) mmol/L 12.7 L Anion Gap (3-11) mmol/L 29.3 H BUN (7-18) mg/dL 39 H Creatinine (0.70-1.30) mg/dL 2.8 H Est GFR (CKD-EPI 2020) (mL/min/1.73m2) 23.24 Glucose (74-106) mg/dL 104 Calcium (8.5-10.1) mg/dL 9.1 Magnesium (1.8-2.4) mg/dL 2.3 Total Bilirubin (0.2-1.0) mg/dL 1.3 H AST (15-37) U/L 30 ALT (16-63) U/L 17 Alkaline Phosphatase (46-116) U/L 199 H Total Protein (6.4-8.2) g/dL 7.2 Albumin (3.4-5.0) g/dL 3.0 L Lipase (<78) U/L 33 Ethyl Alcohol (<10) mg/dL < 3.0 ABO/Rh A Positive Antibody Screen NEGATIVE Medical Decision Making Emergent evaluation of vomiting. Patient has a history of liver disease, unknown esophageal varices. Patient has no records available at this facility. He is noted to be hypotensive and fluid resuscitation has been initiated. Lab work was obtained, no elevation of white blood cell count, hemoglobin stable 11.6 will need trending.. INR slightly elevated at 1.2. Lab work indicates a slight elevation in creatinine and BUN concerning for dehydration, possible GI bleed. IV Protonix has been given. without documented history of esophageal varices, I will not start octreotide at this time. He has been typed and screened but I do not feel a massive upper GI bleed is ongoing and there is no indication for blood transfusion at this time. His hemodynamics have improved with IV fluids. At this time I will admit to the hospital for continued hydration and monitoring. PFSH All Active Problems (Updated 08/23/24 @ 16:48 by Vazquez Pardo) GERD (gastroesophageal reflux disease) (Chronic) DVT prophylaxis (Acute) Acute kidney injury superimposed on CKD (Acute) Anemia (Chronic) Upper GI bleed (Acute) Alcohol use disorder (Acute) Atrial fibrillation (Chronic) Medical History (Updated 08/23/24 @ 16:48 by Vazquez Pardo) Squamous cell carcinoma of tonsils Spinal stenosis Hypertension BPH loc w urin obs/LUTS CKD stage 3a, GFR 45-59 ml/min Hepatocellular carcinoma Gastric varices Cirrhosis, alcoholic Surgical History (Updated 08/23/24 @ 16:44 by Vazquez Pardo) Status post neck dissection tonsilectomy and resection of cancer S/P hernia repair History of liver excision laproscopic partial hepatectomy for HCC 07/20/24 [facility] Social History (Updated 08/23/24 @ 16:44 by Vazquez Pardo) Smoking/Tobacco Use Status: Never Smoking risk assessment performed?: Yes Alcohol Intake: current Alcohol Intake frequency: 0-2 drinks per day Drug use: Occasionally Substance use type: marijuana Additional Social history: Lives with in [facility] Have you Been Recently Intoxicated or Drunk Within the Last 30 days?: No Have you Ever Experienced Previous Episodes of Alcohol Withdrawal?: Yes Have you ever Experienced Withdrawal Seizures?: Yes Have you ever Experienced Delirium Tremens(DT)s?: Yes Have you ever undergone Alcohol Rehabilitation Treatment (i.e, inpt ot outpatient treatment programs)?: Yes Have you ever Experienced Blackouts?: Yes Have you ever Combined Alcohol with other Downers within the last 90 days?: No Have you ever Combined Alcohol with any other Substance of Abuse during the last 90 days?: No Result: 5
[2024-08-23] MEDS: OCTREOTIDE 250 MCG in Normal Saline 245 ML 50 MCG IV (17:45)
--- NOTE | 2024-08-23 17:54 | W.PC.ACHO ---
Registration Status: ADM RONALD Primary Language: Preferred Language: Maori ED Information & Data Chief Complaint Nausea/Vomit/Diar 08/23/24 16:51 Triage Note BIBA- vomiting red-brown 08/23/24 13:13 blood x12 hours, was not about to eat/drink 24hours, unable to take meds this morning, HX abd surg x1 month ago Medical / Surgical History (Last Updated 08/23/24 @ 16:44 by Vazquez Pardo) Squamous cell carcinoma of tonsils Spinal stenosis Hypertension BPH loc w urin obs/LUTS CKD stage 3a, GFR 45-59 ml/min Hepatocellular carcinoma Gastric varices Cirrhosis, alcoholic (Last Updated 08/23/24 @ 16:44 by Vazquez Pardo) Status post neck dissection S/P hernia repair History of liver excision Most Recent Vital Signs Temperature 96.4 F L 08/23/24 16:49 Temperature Source Temporal Artery Scan 08/23/24 16:49 Pulse 82 08/23/24 16:49 Pulse Rhythm Regular 08/23/24 17:01 Pulse 81 08/23/24 16:01 Respiratory Rate 17 08/23/24 16:49 Respiratory Effort Normal, Non-Labored 08/23/24 17:01 Respiratory Depth Normal 08/23/24 17:01 Respiratory Pattern Normal 08/23/24 17:01 Blood Pressure 110/71 08/23/24 16:49 Blood Pressure Mean 84 08/23/24 16:49 Pulse Oximetry 94 08/23/24 16:49 Oxygen Delivery Method Room Air 08/23/24 16:49 Oxygen Flow Rate 0 08/23/24 16:49 Comment rn notified 08/23/24 16:49 Allergies No Known Allergies Allergy (Unverified 09/23/15 14:59) Precautions Isolation Standard precaution 08/23/24 13:17 Active Medications Generic Name Dose Route Start Last Admin Trade Name Freq PRN Reason Stop Dose Admin Octreotide Acetate 250 mcg/ 250 mls @ 50 mls/hr 08/23/24 16:30 08/23/24 17:45 Sodium Chloride IV 50 mcg/hr INFUSION GAMALIEL 50 mls/hr Protocol Administration 50 MCG/HR IV IV Catheter Type [Left Forearm Saline Lock ] IV Catheter Gauge [Left 20 Forearm] IV Catheter Gauge [Right 20 Antecubital] Diet Orders Category Date Time Status npo [Nothing Per Oral] [DIET] Nutrition 08/23/24 16:22 Active Diagnostics 08/23/24 08/23/24 08/23/24 Range/Units Unknown 16:23 13:33 WBC 7.89 (4.4-10.8) 10^3/uL RBC 3.66 L (4.36-5.78) 10^6/uL Hgb Pending 11.6 L (13.5-17.5) g/dL Hct Pending 35.3 L (40.0-50.0) % MCV 96 H (80-95) fL MCH 31.7 (27.0-33.0) pg MCHC 32.9 (32.0-36.0) % RDW 14.9 H (11.8-14.1) % Plt Count 192 (130-400) 10^3/uL MPV 8.9 (8.0-11.0) fL Immature Gran % 1.6 % Neutrophils % 85.2 % Lymphocytes % 6.8 % Monocytes % 6.3 % Eosinophils % 0.0 % Basophils % 0.1 % Nucleated RBC % 0.0 (0.0-0.3) % Absolute Neutrophils 6.71 H (1.2-6.7) 10^3/uL Absolute Lymphocytes 0.54 L (1.2-3.4) 10^3/uL Absolute Monocytes 0.50 (0.1-0.8) 10^3/uL Absolute Eosinophils 0.00 (0.0-0.7) 10^3/uL Absolute Basophils 0.01 (0.0-0.2) 10^3/uL PT 11.6 H (9.1-11.1) sec INR 1.2 H (0.9-1.1) APTT 19.8 L (20.6-30.2) sec VBG Lactate Pending 2.4 H* (<or=2.0) mmol/L Sodium Pending 135 L (136-145) mmol/L Potassium Pending 3.7 (3.5-5.1) mmol/L Chloride Pending 93 L (98-107) mmol/L Carbon Dioxide Pending 12.7 L (21.0-32.0) mmol/L Anion Gap Pending 29.3 H (3-11) mmol/L BUN Pending 39 H (7-18) mg/dL Creatinine Pending 2.8 H (0.70-1.30) mg/dL Est GFR (CKD-EPI 2020) Pending 23.24 (mL/min/1.73m2) Glucose Pending 104 (74-106) mg/dL Calcium Pending 9.1 (8.5-10.1) mg/dL Magnesium 2.3 (1.8-2.4) mg/dL Total Bilirubin 1.3 H (0.2-1.0) mg/dL AST 30 (15-37) U/L ALT 17 (16-63) U/L Alkaline Phosphatase 199 H (46-116) U/L Total Protein 7.2 (6.4-8.2) g/dL Albumin 3.0 L (3.4-5.0) g/dL Lipase 33 (<78) U/L Ethyl Alcohol < 3.0 (<10) mg/dL ABO/Rh A Positive Antibody Screen NEGATIVE Intake and Output - 24 Hour Total 08/23/24 13:12 thru 08/23/24 17:01 Intake Total 1000 Balance 1000 Weight 112 lb 14.027 oz Intake: IV 1000 Other: Urine Appearance Clear Emesis Description Blood Tinged Falls Risk Assessment History of Falls Previous History 08/23/24 17:01 Contributing Factors Impairments 08/23/24 17:01 Ambulatory Aids Uses ambulatory device 08/23/24 17:01 Tubes/Lines W/no contributing factors 08/23/24 17:01 Gait Evaluation W/any additional score 08/23/24 17:01 Cognition No cognitive impairment 08/23/24 17:01 Fall Total Score 63 08/23/24 17:01 Level of Risk High Risk 08/23/24 17:01 Problems (Last Updated 08/23/24 @ 16:44 by Vazquez Pardo) DVT prophylaxis (Acute) Acute kidney injury superimposed on CKD (Acute) Anemia (Chronic) Upper GI bleed (Acute) Alcohol use disorder (Acute) Atrial fibrillation (Chronic) v v v v v v v v v Sending and/or Receiving Nurses: Please use comment section below to note any information pertinent to the patient hand-off not included above. Information / Comments: Report received from: Geraldine Charles RN
[2024-08-23] MEDS: Tamsulosin 0.4 MG CAPCR PO (19:50)
[2024-08-23 19:52] LABS: HCT 32.5 % (40.0-50.0); HGB 10.5 g/dL (13.5-17.5)
[2024-08-23 20:04] LABS: Anion Gap 26.9 mmol/L (3-11); BUN 42 mg/dL (7-18); CO2 11.1 mmol/L (21.0-32.0); Calcium 8.5 mg/dL (8.5-10.1); Chloride 99 mmol/L (98-107); Estimated GFR 24.28 (mL/min/1.73m2); Glucose 101 mg/dL (74-106); Potassium 3.9 mmol/L (3.5-5.1); Sodium 137 mmol/L (136-145)
[2024-08-23] MEDS: POTASSIUM CHLORIDE/D5-0.9%NACL 1,000 ML 100 MEQ IV (22:52)
[2024-08-23] MEDS: Pantoprazole 40 MG VIAL IVP (23:05)
[2024-08-23] MEDS: Normal Saline Flush 10 ML SYR IVP (23:09)
[2024-08-24 03:07] VITALS: BP 102/63; PULSE 88; RESP 22; TEMP 36.5; O2SAT 94
[2024-08-24] MEDS: Normal Saline 500 ML 1000 ML IV (06:15)
[2024-08-24 06:54] LABS: HCT 26.1 % (40.0-50.0); HGB 8.4 g/dL (13.5-17.5); MCH 32.6 pg (27.0-33.0); MCHC 32.2 % (32.0-36.0); MCV 101 fL (80-95); MPV 8.4 fL (8.0-11.0); Platelet Count 110 10^3/uL (130-400); RBC 2.58 10^6/uL (4.36-5.78); RDW 15.4 % (11.8-14.1); RDW-SD 56.7 fL; WBC 3.72 10^3/uL (4.4-10.8)
[2024-08-24 07:15] LABS: ALT 13 U/L (16-63); AST 21 U/L (15-37); Albumin 2.0 g/dL (3.4-5.0); Alkaline Phosphatase 136 U/L (46-116); Anion Gap 25.4 mmol/L (3-11); BUN 43 mg/dL (7-18); Bilirubin, Total 0.7 mg/dL (0.2-1.0); CO2 9.6 mmol/L (21.0-32.0); Calcium 7.5 mg/dL (8.5-10.1); Chloride 103 mmol/L (98-107); Estimated GFR 22.29 (mL/min/1.73m2); Glucose 234 mg/dL (74-106); Potassium 4.0 mmol/L (3.5-5.1); Sodium 138 mmol/L (136-145); Total Protein 5.2 g/dL (6.4-8.2)
[2024-08-24 07:25] VITALS: BP 94/55; PULSE 90; RESP 17; TEMP 36.6; O2SAT 93
--- NOTE | 2024-08-24 08:51 | W.SURGCON ---
Date of service: 08/24/24 Time of Service: 08:51 Assessment and Plan Assessment and plan (1) Upper GI bleed: Status: Acute Assessment and plan: 73-year-old male with history of cirrhosis, portal hypertension, varices presenting with bloody emesis. Blood not present on initial emesis, suspect intoxication with forceful emesis and Ariana-Haji tear. No evidence of ongoing bleeding. Anemia likely related to recent surgery - Agree with PPI - Hold on anticoagulation at this time - Okay for DVT prophylaxis - Okay for clear liquid diet - With history of portal hypertension and varices, we would not be able to do intervention on varices if endoscopy was undertaken. Additionally patient is acutely postop from major hepatic surgery. Recommend patient follow-up with operating surgeon and hospital system for further evaluation and treatment - No plan for surgical intervention at this hospital during this stay. Call with additional questions or concerns - Discussed plan with patient, nurse, internal medicine, multidisciplinary rounds team (2) Alcohol use disorder: Status: Acute Assessment and plan: Alcohol abuse leading to cirrhosis, portal hypertension with varices, hepatocellular carcinoma status post laparoscopic partial hepatectomy 07/22. Patient has started drinking again - Counseled patient on risks of further alcohol use - Discuss abstinence from alcohol use (3) Acute kidney injury superimposed on CKD: Status: Acute Assessment and plan: Suspect dehydration secondary to alcohol intake and emesis. Improved after IV hydration overnight - Defer to medicine (4) Anemia: Status: Chronic Assessment and plan: Chronic anemia secondary to alcohol abuse with cirrhosis, worse following recent partial hepatectomy. 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 Status post partial hepatectomy 07/22/2024. History of portal hypertension with varices noted on outpatient records. Presents with bloody emesis after drinking three 24 ounce beers. Patient had not had significant alcohol intake since recent surgery. No further nausea or vomiting at this time. No blood initially on first emesis but present in subsequent emesis. Denies blood in stool. Mild chronic abdominal pain since surgery, slightly worse after emesis. No chest pain, shortness of breath, fevers, chills. Present labs indicating dehydration with RADHA on CKD. Blood glucose also elevated. Review of Systems Constitutional Constitutional: Denies body ache(s), Denies chills and Denies fever(s) Eyes Eyes: Denies change in vision Cardiovascular Cardiovascular: Denies chest pain, Denies chest pain at rest, Denies chest pain with activity, Denies lightheadedness, Denies dyspnea and Denies dyspnea on exertion Respiratory Respiratory: Denies cough, Denies dyspnea and Denies dyspnea on exertion Gastrointestinal Gastrointestinal: Reports abdominal pain (Mild, persistent since surgery. Worse after emesis. Soreness), Denies melena, Denies hematochezia, Reports nausea (Resolved), Reports vomiting and Reports hematemesis Genitourinary Genitourinary: Reports difficulty urinating PFSH All Active Problems GERD (gastroesophageal reflux disease) (Chronic) DVT prophylaxis (Acute) Acute kidney injury superimposed on CKD (Acute) Anemia (Chronic) Upper GI bleed (Acute) Alcohol use disorder (Acute) Atrial fibrillation (Chronic) Medical History Squamous cell carcinoma of tonsils Spinal stenosis Hypertension BPH loc w urin obs/LUTS CKD stage 3a, GFR 45-59 ml/min Hepatocellular carcinoma Gastric varices Cirrhosis, alcoholic Surgical History Status post neck dissection tonsilectomy and resection of cancer S/P hernia repair History of liver excision laproscopic partial hepatectomy for HCC 07/20/24 [facility] Social History Smoking/Tobacco Use Status: Never Smoking risk assessment performed?: Yes Alcohol Intake: current Alcohol Intake frequency: 0-2 drinks per day Drug use: Occasionally Substance use type: marijuana Housing: house Additional Social history: Lives with in [facility] Exam Const General: cooperative, comfortable and no acute distress Eyes EOM: EOM intact bilaterally Resp Effort & Inspection: normal respiratory effort and able to speak in complete sentences Cardio Rate: regular rate GI Inspection: scar (Trocar incisions well-healed. Mild associated tenderness. No palpable her) and no visible herniation Palpation: soft, no guarding, no hernias and tender in the epigastrum Neuro General: patient alert, patient awake and patient oriented x3 Cognition: normal cognition Speech: speech normal Results Last Vital Signs Temp 36.6 C 08/24/24 07:25 Pulse 90 08/24/24 07:25 Resp 17 08/24/24 07:25 BP 94/55 L 08/24/24 07:25 Pulse Ox 93 08/24/24 07:25 Labs 08/24/24 06:35 08/24/24 06:35 Labs: Laboratory Results - last 24 hr 08/23/24 08/23/24 08/23/24 13:33 19:40 19:48 WBC 7.89 RBC 3.66 L Hgb 11.6 L 10.5 L Hct 35.3 L 32.5 L MCV 96 H MCH 31.7 MCHC 32.9 RDW 14.9 H Plt Count 192 MPV 8.9 Immature Gran % 1.6 Neutrophils % 85.2 Lymphocytes % 6.8 Monocytes % 6.3 Eosinophils % 0.0 Basophils % 0.1 Nucleated RBC % 0.0 Absolute Neutrophils 6.71 H Absolute Lymphocytes 0.54 L Absolute Monocytes 0.50 Absolute Eosinophils 0.00 Absolute Basophils 0.01 PT 11.6 H INR 1.2 H APTT 19.8 L VBG Lactate 2.4 H* Sodium 135 L 137 Potassium 3.7 3.9 Chloride 93 L 99 Carbon Dioxide 12.7 L 11.1 L Anion Gap 29.3 H 26.9 H BUN 39 H 42 H Creatinine 2.8 H 2.7 H Est GFR (CKD-EPI 2020) 23.24 24.28 Glucose 104 101 Calcium 9.1 8.5 Magnesium 2.3 Total Bilirubin 1.3 H AST 30 ALT 17 Alkaline Phosphatase 199 H Total Protein 7.2 Albumin 3.0 L Lipase 33 Ethyl Alcohol < 3.0 ABO/Rh A Positive Antibody Screen NEGATIVE 08/23/24 08/24/24 Unknown 06:35 WBC 3.72 L RBC 2.58 L Hgb 8.4 L D Hct 26.1 L MCV 101 H D MCH 32.6 MCHC 32.2 RDW 15.4 H Plt Count 110 L MPV 8.4 Immature Gran % Neutrophils % Lymphocytes % Monocytes % Eosinophils % Basophils % Nucleated RBC % Absolute Neutrophils Absolute Lymphocytes Absolute Monocytes Absolute Eosinophils Absolute Basophils PT INR APTT VBG Lactate Cancelled 1.0 Sodium 138 Potassium 4.0 Chloride 103 Carbon Dioxide 9.6 L Anion Gap 25.4 H BUN 43 H Creatinine 2.9 H Est GFR (CKD-EPI 2020) 22.29 Glucose 234 H Calcium 7.5 L Magnesium Total Bilirubin 0.7 AST 21 ALT 13 L Alkaline Phosphatase 136 H Total Protein 5.2 L Albumin 2.0 L Lipase Ethyl Alcohol ABO/Rh Antibody Screen
[2024-08-24] MEDS: POTASSIUM CHLORIDE/D5-0.9%NACL 1,000 ML 125 MEQ IV ×2 (09:06→17:22)
[2024-08-24] MEDS: Pantoprazole 40 MG VIAL IVP ×2 (09:31→21:25)
[2024-08-24] MEDS: Normal Saline Flush 10 ML SYR IVP ×4 (09:32→21:27)
[2024-08-24 09:42] VITALS: BP 98/60; PULSE 89
[2024-08-24 12:57] VITALS: BP 106/62; PULSE 89; RESP 18; TEMP 36.5; O2SAT 99
--- NOTE | 2024-08-24 15:15 | W.PM.PROGNOT ---
Date of Service Date of service: 08/24/24 Time of Service: 14:00 Assessment and Plan Assessment and plan (1) High anion gap metabolic acidosis: Status: Acute Assessment and plan: Elevated anion gap on arrival, improving With renal injury will give serum bicarbonate 2 amps Continue IV fluids, now LR @ 100 Consider causes other than dehydration (2) Upper GI bleed: Status: Acute Assessment and plan: Resolved. Fall in hemoglobin from 11's to 8's consistent with dilution. Appreciate general surgery assessment If patient requires EGD, will need higher level of care Discussed with GI at [facility], they want assessment of active bleeding for transfer. No active bleeding. (3) Anemia: Status: Chronic Assessment and plan: Hemoglobin 11.6 on arrival, falling to 8.4 this morning Patient has been on IV fluids overnight, likely causing dilution Repeat H&H this afternoon shows hemoglobin rising to 9.3 Will continue monitoring (4) Acute kidney injury superimposed on CKD: Status: Acute Assessment and plan: Slight worsening overnight, creatinine now 2.9 with elevated anion gap Last known creatinine baseline 1.4 in February 2023 Likely due to worsening chronic disease as well as RADHA from dehydration Continue IV fluids (5) Atrial fibrillation: Status: Chronic Assessment and plan: Chronic, currently rate controlled on beta clara (6) Alcohol use disorder: Status: Acute Assessment and plan: Chronic, discussed cessation. Very high risk of and worsening disease with any continued drinking. (7) Cirrhosis, alcoholic: Assessment and plan: Compensated clinically with Child Barker 6/class A. As above, not clear if he has current portal HTN. He is on selective beta clara, suggesting he does not have portal HTN currently. (8) BPH loc w urin obs/LUTS: Assessment and plan: Adequate urine output on tamsulosin (9) DVT prophylaxis: Status: Acute Assessment and plan: SCDs only due to recent bleed Subjective Subjective Interval history since last seen: Mr. Johnson is napping, easily roused. No vomiting since admission. Exam Narrative Exam Narrative: General: This is a pleasant man in no distress HEENT: Normocephalic. Scars on neck from surgeries, no masses. Edentulous with dentures. CV: RRR Resp: CTAB Abd: NTND +NBS MSK: voluntary motion x4 Skin: warm and dry, no jaundice Neuro: Awake and alert without focal deficits Objective Last Vital Signs Temp 36.5 C 07/08/25 12:57 Pulse 89 08/24/24 12:57 Resp 18 08/24/24 12:57 BP 106/62 08/24/24 12:57 Pulse Ox 99 08/24/24 12:57 Laboratory Results - last 24 hr 08/23/24 08/23/24 08/23/24 19:40 19:48 Unknown WBC RBC Hgb 10.5 L Hct 32.5 L MCV MCH MCHC RDW Plt Count MPV VBG Lactate Cancelled Sodium 137 Potassium 3.9 Chloride 99 Carbon Dioxide 11.1 L Anion Gap 26.9 H BUN 42 H Creatinine 2.7 H Est GFR (CKD-EPI 2020) 24.28 Glucose 101 Calcium 8.5 Total Bilirubin AST ALT Alkaline Phosphatase Total Protein Albumin 08/24/24 06:35 WBC 3.72 L RBC 2.58 L Hgb 8.4 L D Hct 26.1 L MCV 101 H D MCH 32.6 MCHC 32.2 RDW 15.4 H Plt Count 110 L MPV 8.4 VBG Lactate 1.0 Sodium 138 Potassium 4.0 Chloride 103 Carbon Dioxide 9.6 L Anion Gap 25.4 H BUN 43 H Creatinine 2.9 H Est GFR (CKD-EPI 2020) 22.29 Glucose 234 H Calcium 7.5 L Total Bilirubin 0.7 AST 21 ALT 13 L Alkaline Phosphatase 136 H Total Protein 5.2 L Albumin 2.0 L PAWSS Have you Been Recently Intoxicated or Drunk Within the Last 30 days?: No Have you Ever Experienced Previous Episodes of Alcohol Withdrawal?: No Have you ever Experienced Withdrawal Seizures?: Yes Have you ever Experienced Delirium Tremens(DT)s?: Yes Have you ever undergone Alcohol Rehabilitation Treatment (i.e, inpt ot outpatient treatment programs)?: Yes Have you ever Experienced Blackouts?: Yes Have you ever Combined Alcohol with other Downers within the last 90 days?: No Have you ever Combined Alcohol with any other Substance of Abuse during the last 90 days?: No Positive Blood Alcohol level on Presentation? [PCS.BAL]: Unable to Obtain Evidence of Increased Autonomic Activity (i.e. HR>120, tremor, sweating, agitation, nausea)?: No Result: 4 Time Spent with Patient Time Spent with Patient: 25-34 minutes Time was spent: preparing to see the patient(eg.review tests), obtaining and/or reviewing separately otained hiistory, ordering medications,tests, procedures, referring, communicating with other health career development associate, indepentently interpreting results, counseling the patient and care coordination
[2024-08-24 15:34] VITALS: BP 118/64; PULSE 88; RESP 18; TEMP 36.6; O2SAT 98
[2024-08-24 16:24] LABS: HCT 28.9 % (40.0-50.0); HGB 9.3 g/dL (13.5-17.5); MCH 31.1 pg (27.0-33.0); MCHC 32.2 % (32.0-36.0); MCV 97 fL (80-95); MPV 9.1 fL (8.0-11.0); RBC 2.99 10^6/uL (4.36-5.78); RDW 15.1 % (11.8-14.1); RDW-SD 53.3 fL; WBC 3.77 10^3/uL (4.4-10.8)
--- NOTE | 2024-08-24 16:42 | INITIAL_ITS ---
Date of service: 08/24/24 Time of Service: 16:42 Care Management Initial Assmt Initial Assessment Reason for Hospitalization: vomiting, RADHA Functional Status/Living Situation Patient Presentation: Emile was resting when CM attempted to visit with him. Upon another attempt, he woke up to greet CM, but stated I would rather not talk to anyone right now, and closed his eyes to resume resting. Per report, there was a surgical consult, and per MD, Emile had surgical intervention at [facility] about one month ago, therefore MD will reach out to that facility for recommendations on further management. CM will continue to follow. Town of Residence: [place] Resides with: Spouse Natural Supports: spouse, Nessa Employment Status: Retired Instrumental Activities of Daily Living (ADLs): Independent Medications Medication Management: No Issues/Barriers identified Advance Directives Advance Directives: Do you have an Advance Directive: N , 08:43 AD On File at [facility]: N 08/27/12, 16:32 Date Asked 08/23/24 08/23/24, 15:18 AD Date Reviewed COLST On File at [facility] COLST Date Scanned Code Status Resuscitation Status DNI Insurance Coverage/Financial Issues Insurance: VBA Care Team Visit Care Team Role Provider Type Damian Horowitz MD MD [facility] STAFF PHYSICIAN Kelsy Hardin Primary Care Provider NURSE PRACTITIONER Madonna Pozo MD Other Providers NON-[facility] STAFF PHYSICIAN HERI Blackwell Other Providers PHYSICIANS ASSISTANT Jeff Ortega [facility] Other Providers [facility] STAFF PHYSICIAN Jeff Ortega [facility] Other Providers NON-[facility] STAFF PHYSICIAN Speedy Lam, DO Other Providers CONSULTING PHYSICIAN Surinder Szymanski MD Other Providers [facility] STAFF PHYSICIAN Raul Howe MD Other Providers [facility] STAFF PHYSICIAN Mary Arauz MD Other Providers [facility] STAFF PHYSICIAN Lorena Mcmahon, DO Other Providers CONSULTING PHYSICIAN Robin Walters MD Other Providers CONSULTING PHYSICIAN Dylan Faust, DO Other Providers OSTEOPATHIC DOCTOR Wilfrido Charles MD Other Providers [facility] STAFF PHYSICIAN Sita Bateman, DO Other Providers OSTEOPATHIC DOCTOR Carolina Pa MD Other Providers [facility] STAFF PHYSICIAN Bret Gaines MD Emergency Provider [facility] STAFF PHYSICIAN Vazquez Pardo Admit Provider [facility] STAFF PHYSICIAN Attending Provider Discharge Potential Discharge Needs: PCP F/U Appt and Surgical F/U Appt Anticipated Barriers to Discharge: None Identified Patient/Family Education Needs: Review discharge instructions, discuss Ask Me Three Transportation: Private vehicle Plan: Anticipate Emile will return home once medically cleared. His will drive him home via private vehicle. He will follow up with his PCP and discharge plan of care. CM will continue to follow. Social Determinants of Health Screening Social Determinants of health last assessed in clinic: 08/24/24 Will the Patient Participate in the Screening?: Yes Do you worry about having a steady place to live?: no Problems where you live: no known problems In the past 12 months, have you had to go without electric, gas, oil or water in your home?: no 1. Within the past 12 months, we worried whether our food would run out before we got money to buy more.: Don't know/refused 2. Within the past 12 months, the food we bought just didn't last and we didn't have money to get more.: Don't know/refused Has lack of transportation kept you from medical appointments or from doing things needed for daily living?: no Has anyone in your life made you feel unsafe or unsupported?: no How hard is it for you to pay for the very basics like food, housing, medical care, and heating? Would you say it is:: Not hard at all Do you want help finding or keeping work or a job?: I do not need or want help If for any reason you need help with day-to-day activities such as bathing, preparing meals, shopping, managing finances, etc., do you get the help you need?: I don?t need any help How often do you feel lonely or isolated from those around you?: Sometimes Do you speak a language other than Taiwanese at home?: No Does the patient want assistance with any of the above?: No Health Related Social Needs Health related social needs: feeling lonely/isolated (Z60.8) Health related social needs details: Has support group PFSH All Active Problems GERD (gastroesophageal reflux disease) (Chronic) DVT prophylaxis (Acute) Acute kidney injury superimposed on CKD (Acute) Anemia (Chronic) Upper GI bleed (Acute) Alcohol use disorder (Acute) Atrial fibrillation (Chronic) Medical History Squamous cell carcinoma of tonsils Spinal stenosis Hypertension BPH loc w urin obs/LUTS CKD stage 3a, GFR 45-59 ml/min Hepatocellular carcinoma Gastric varices Cirrhosis, alcoholic Surgical History Status post neck dissection tonsilectomy and resection of cancer S/P hernia repair History of liver excision laproscopic partial hepatectomy for HCC 07/20/24 [facility] Social History Smoking/Tobacco Use Status: Never Smoking risk assessment performed?: Yes Alcohol Intake: current Alcohol Intake frequency: 0-2 drinks per day Drug use: Occasionally Substance use type: marijuana Housing: house Additional Social history: Lives with in [facility]
[2024-08-24 16:46] LABS: Platelet Count 98 10^3/uL (130-400)
[2024-08-24] MEDS: Tamsulosin 0.4 MG CAPCR PO (20:07)
[2024-08-24] MEDS: Lactated Ringers 1,000 ML 100 ML IV (20:08)
[2024-08-24 20:28] VITALS: BP 120/75; PULSE 91; RESP 24; TEMP 36.4; O2SAT 94
[2024-08-24] MEDS: Insulin Aspart 100 UNITS/ML UNIT SC (20:53)
[2024-08-25 00:03] VITALS: BP 111/76; PULSE 95; RESP 24; TEMP 36; O2SAT 98
[2024-08-25] MEDS: Lactated Ringers 1,000 ML 100 ML IV ×3 (05:47→21:14)
[2024-08-25 08:05] VITALS: BP 127/84; PULSE 96; RESP 17; TEMP 36.2; O2SAT 98
[2024-08-25] MEDS: Metoprolol CR 100 MG TABCR PO (08:27)
[2024-08-25 10:18] LABS: HCT 25.9 % (40.0-50.0); HGB 8.5 g/dL (13.5-17.5); MCH 32.0 pg (27.0-33.0); MCHC 32.8 % (32.0-36.0); MCV 97 fL (80-95); MPV 7.8 fL (8.0-11.0); RBC 2.66 10^6/uL (4.36-5.78); RDW 15.8 % (11.8-14.1); RDW-SD 54.8 fL; WBC 2.10 10^3/uL (4.4-10.8)
[2024-08-25 10:31] LABS: Platelet Count 99 10^3/uL (130-400)
[2024-08-25 10:39] LABS: ALT 14 U/L (16-63); AST 23 U/L (15-37); Albumin 2.1 g/dL (3.4-5.0); Alkaline Phosphatase 138 U/L (46-116); Anion Gap 13.6 mmol/L (3-11); BUN 38 mg/dL (7-18); Bilirubin, Total 0.4 mg/dL (0.2-1.0); CO2 19.4 mmol/L (21.0-32.0); Calcium 8.2 mg/dL (8.5-10.1); Chloride 107 mmol/L (98-107); Estimated GFR 19.80 (mL/min/1.73m2); Glucose 163 mg/dL (74-106); Potassium 3.4 mmol/L (3.5-5.1); Sodium 140 mmol/L (136-145); Total Protein 5.3 g/dL (6.4-8.2)
[2024-08-25] MEDS: Pantoprazole 40 MG VIAL IVP ×2 (11:21→23:32)
[2024-08-25] MEDS: Normal Saline Flush 10 ML SYR IVP ×4 (11:21→23:32)
[2024-08-25 11:42] LABS: Glucose Negative (Negative)
[2024-08-25 11:53] VITALS: BP 125/88; PULSE 79; RESP 16; TEMP 36.9; O2SAT 99
[2024-08-25 12:03] LABS: RBC Negative HPF (0-2); WBC 0-2 HPF (0-5)
[2024-08-25 12:04] LABS: C & S Indicated? No
--- NOTE | 2024-08-25 12:06 | PDOC.CMPRO ---
Date of service: 08/25/24 Time of Service: 12:06 Care Management Progress Note Progress Note Text Progress Note Text: Aleksandr was lying in bed, with all the lights off, when CM met with him today. He did not have the best day today, and stated that he would like to be left alone. He was pleasant, but just did not want to talk. He stated that his will pick him up when he is ready to go home. Discharge Potential Discharge Needs: PCP F/U Appt Anticipated Barriers to Discharge: None Identified Patient/Family Education Needs: Review discharge instructions, discuss Ask Me Three Transportation: Private vehicle Plan: Anticipate Emile will return home once medically cleared. His will drive him home via private vehicle. He will follow up with his PCP and discharge plan of care. CM will continue to follow. Social Determinants of Health Screening Social Determinants of health last assessed in clinic: 08/25/24 Will the Patient Participate in the Screening?: Yes Do you worry about having a steady place to live?: no Problems where you live: no known problems In the past 12 months, have you had to go without electric, gas, oil or water in your home?: no 1. Within the past 12 months, we worried whether our food would run out before we got money to buy more.: Don't know/refused 2. Within the past 12 months, the food we bought just didn't last and we didn't have money to get more.: Don't know/refused Has lack of transportation kept you from medical appointments or from doing things needed for daily living?: no Has anyone in your life made you feel unsafe or unsupported?: no How hard is it for you to pay for the very basics like food, housing, medical care, and heating? Would you say it is:: Not hard at all Do you want help finding or keeping work or a job?: I do not need or want help If for any reason you need help with day-to-day activities such as bathing, preparing meals, shopping, managing finances, etc., do you get the help you need?: I don?t need any help How often do you feel lonely or isolated from those around you?: Sometimes Do you speak a language other than Chinese at home?: No Does the patient want assistance with any of the above?: No Health Related Social Needs Health related social needs: feeling lonely/isolated (Z60.8) Health related social needs details: Has support group
--- NOTE | 2024-08-25 12:08 | W.NUTRFU ---
Date of service: 08/25/24 Time of Service: 11:30 Nutrition Note NOTE: received consult request re: diabetes education/mgt Pt admitted after vomiting red-brown hours and being treated for metabolic acidosis, upper GI bleed, RADHA/CKD. Has PMH significant for alcohol use disorder with alcoholic cirrhosis. Pt sitting upright in bed upon visit - has a glass of milk at bedside - said he took a few sips but the 3rd sip hurt. He has no teeth and reports these being at home. UBW reported by pt as 165lbs and reports 115lbs now- lost this weight over the course of a couple years. Reports significantly low intake since abdominal surgery about a month ago, taking in an estimated 25% or less of daily energy needs. No diabetes meds at home. Last A1C documented was 6.0% in 2020. Ordered for insulin aspart for corrections at meals. fasting glucose 234 yesterday and 163 today, 140 at breakfast today and 145 at lunch. Pt ordered for clear liquids on regular diet - will modify to clears consistent CHO diet and will monitor for advancement. pt agreeable to boost breeze ONS and sugar free gelatein for extra protein and kcals - will provide these between meals at nourishment times NFPE not performed as pt declined at this time but obvious signs of temporal muscle wasting and buccal and orbital fat bad SQ loses. Nutrition Dx: moderate malnutrition related to post surgical interventions and current disease state, as well as etoh abuse hx, as evidenced by taking <50% of estimated energy req for >5 days and significant body weight losses of over 20% of body mass over the last 2 years. Intervention: ONS as above. ?BIOMECHANICAL ENGINEER evaluation appropriate for dysphagia assessment. change diet to CHO consistent. Will monitor po intake, nutrition-related labs, diet advancement Time Spent in Nutritional Counseling and Treatment: 15 min
--- NOTE | 2024-08-25 14:42 | W.PM.PROGNOT ---
Date of Service Date of service: 08/25/24 Time of Service: 11:00 Assessment and Plan Assessment and plan (1) High anion gap metabolic acidosis: Status: Acute Assessment and plan: Elevated anion gap on arrival, improving after bicarb given August 25 Adding fluid boluses August 26 for RADHA Continue IV fluids, now LR @ 100 (2) Upper GI bleed: Status: Acute Assessment and plan: Resolved. Fall in hemoglobin from 11's to 8's consistent with dilution. Appreciate general surgery assessment If patient requires EGD, will need higher level of care Discussed with GI at [facility], they want assessment of active bleeding for transfer. No active bleeding. (3) Anemia: Status: Chronic Assessment and plan: Hemoglobin 11.6 on arrival, falling to 8's on August 24 Likely dilutional, continue monitoring No transfusion at this time (4) Acute kidney injury superimposed on CKD: Status: Acute Assessment and plan: Creatinine now above 3 Worsening likely due to dehydration Adding fluid boluses Last known creatinine baseline 1.4 in February 2023 Likely due to worsening chronic disease as well as RADHA from dehydration (5) Atrial fibrillation: Status: Chronic Assessment and plan: Chronic, currently rate controlled on beta clara (6) Alcohol use disorder: Status: Acute Assessment and plan: Chronic, discussed cessation. Very high risk of and worsening disease with any continued drinking. (7) Cirrhosis, alcoholic: Assessment and plan: Compensated clinically with Child Barker 6/class A. Unclear if he has current portal HTN. He is on selective beta clara, suggesting he does not have portal HTN currently. (8) BPH loc w urin obs/LUTS: Assessment and plan: Adequate urine output on tamsulosin (9) DVT prophylaxis: Status: Acute Assessment and plan: SCDs only due to recent bleed Subjective Subjective Interval history since last seen: Mr Johnson is awake and alert, reading in bed. He continues to have diffuse abdominal pain and is not able to eat. Exam Narrative Exam Narrative: General: This is a pleasant man in no distress HEENT: Normocephalic. Scars on neck from surgeries, no masses. Edentulous with dentures. CV: RRR Resp: CTAB Abd: diffusely tender in all 4 quadrants. Hypoactive bowel sounds MSK: voluntary motion x4 Skin: warm and dry, no jaundice Neuro: Awake and alert without focal deficits Objective Last Vital Signs Temp 36.9 C 08/25/24 11:53 Pulse 79 08/25/24 11:53 Resp 16 08/25/24 11:53 BP 125/88 08/25/24 11:53 Pulse Ox 99 08/25/24 11:53 Laboratory Results - last 24 hr 08/24/24 08/25/24 08/25/24 16:10 10:00 11:15 WBC 3.77 L 2.10 L RBC 2.99 L 2.66 L Hgb 9.3 L 8.5 L Hct 28.9 L 25.9 L MCV 97 H D 97 H MCH 31.1 32.0 MCHC 32.2 32.8 RDW 15.1 H 15.8 H Plt Count 98 L 99 L MPV 9.1 7.8 L Sodium 140 Potassium 3.4 L Chloride 107 Carbon Dioxide 19.4 L Anion Gap 13.6 H BUN 38 H Creatinine 3.2 H Est GFR (CKD-EPI 2020) 19.80 Glucose 163 H Calcium 8.2 L Total Bilirubin 0.4 AST 23 ALT 14 L Alkaline Phosphatase 138 H Total Protein 5.3 L Albumin 2.1 L Urine Color Dinora Urine Clarity Clear Urine pH 5.5 Ur Specific [place] 1.015 Urine Protein 30 H Urine Ketones Trace H Urine Blood Negative Urine Nitrite Negative Urine Bilirubin Moderate H Urine Urobilinogen 0.2 Ur Leukocyte Esterase Negative Urine RBC Negative Urine WBC 0-2 Ur Epithelial Cells Rare Urine Crystals Negative Urine Bacteria Rare Urine Casts 0-2 Hyaline Urine Mucus Trace Ur Culture Indicated? No Urine Glucose Negative PAWSS Have you Been Recently Intoxicated or Drunk Within the Last 30 days?: No Have you Ever Experienced Previous Episodes of Alcohol Withdrawal?: No Have you ever Experienced Withdrawal Seizures?: Yes Have you ever Experienced Delirium Tremens(DT)s?: Yes Have you ever undergone Alcohol Rehabilitation Treatment (i.e, inpt ot outpatient treatment programs)?: Yes Have you ever Experienced Blackouts?: Yes Have you ever Combined Alcohol with other Downers within the last 90 days?: No Have you ever Combined Alcohol with any other Substance of Abuse during the last 90 days?: No Positive Blood Alcohol level on Presentation? [PCS.BAL]: Unable to Obtain Evidence of Increased Autonomic Activity (i.e. HR>120, tremor, sweating, agitation, nausea)?: No Result: 4 Time Spent with Patient Time Spent with Patient: 25-34 minutes Time was spent: preparing to see the patient(eg.review tests), obtaining and/or reviewing separately otained hiistory, ordering medications,tests, procedures, referring, communicating with other health foster care social worker, indepentently interpreting results, counseling the patient and care coordination
--- NOTE | 2024-08-25 14:54 | CHAPLAIN ---
Emile was resting in bed when I visited. The room was darkened and he was pleasant and very quiet. He said his will be in later today. He told me he was from [place] but was not interested in further conversation. I explained my role and offered support.
[2024-08-25 15:33] VITALS: BP 135/87; PULSE 83; RESP 16; TEMP 36.5; O2SAT 98
[2024-08-25] MEDS: Lactated Ringers 1,000 ML 1000 ML IV (16:25)
[2024-08-25 19:51] VITALS: BP 139/95; PULSE 76; RESP 20; TEMP 36.9; O2SAT 94
[2024-08-25] MEDS: Tamsulosin 0.4 MG CAPCR PO (21:15)
[2024-08-25 23:23] VITALS: BP 133/89; PULSE 75; RESP 20; TEMP 36.7; O2SAT 95
[2024-08-26 02:26] VITALS: BP 131/91; PULSE 76; RESP 20; TEMP 36.6; O2SAT 93
[2024-08-26] MEDS: Normal Saline Flush 10 ML SYR IVP ×4 (06:57→23:54)
[2024-08-26] MEDS: Lactated Ringers 1,000 ML 100 ML IV ×2 (06:57→16:46)
[2024-08-26 07:25] LABS: INR 1.2 (0.9-1.1); Prothrombin Time 11.7 sec (9.1-11.1)
[2024-08-26 07:33] LABS: HCT 24.4 % (40.0-50.0); HGB 8.2 g/dL (13.5-17.5); MCH 32.4 pg (27.0-33.0); MCHC 33.6 % (32.0-36.0); MCV 96 fL (80-95); MPV 8.9 fL (8.0-11.0); RBC 2.53 10^6/uL (4.36-5.78); RDW 15.5 % (11.8-14.1); RDW-SD 53.8 fL
[2024-08-26 07:35] VITALS: BP 141/93; PULSE 72; RESP 16; TEMP 36.7; O2SAT 96
[2024-08-26 07:40] LABS: ALT 14 U/L (16-63); AST 23 U/L (15-37); Albumin 1.9 g/dL (3.4-5.0); Alkaline Phosphatase 127 U/L (46-116); Anion Gap 11.2 mmol/L (3-11); BUN 36 mg/dL (7-18); Bilirubin, Total 0.5 mg/dL (0.2-1.0); CO2 20.8 mmol/L (21.0-32.0); Calcium 8.1 mg/dL (8.5-10.1); Chloride 109 mmol/L (98-107); Estimated GFR 23.24 (mL/min/1.73m2); Glucose 119 mg/dL (74-106); Potassium 3.4 mmol/L (3.5-5.1); Sodium 141 mmol/L (136-145); Total Protein 4.9 g/dL (6.4-8.2)
[2024-08-26 08:33] LABS: Platelet Count 89 10^3/uL (130-400)
[2024-08-26 08:36] LABS: WBC 1.76 10^3/uL (4.4-10.8)
[2024-08-26] MEDS: Pantoprazole 40 MG VIAL IVP ×2 (10:02→23:53)
[2024-08-26] MEDS: Metoprolol CR 100 MG TABCR PO (10:02)
--- NOTE | 2024-08-26 11:17 | IN_ITS ---
PT Notes Visit Reasons: Vomiting, RADHA Physical Therapy Inpatient Initial Evaluation Date: 08/27/2024 Referring Doctor: Damian Horowitz MD PT Orders: PT CONSULT: Safety Consult for D/C Precautions: Fall. Standard. Activity as tolerated. Patient Profile/Admitting Diagnosis: Emile is a 73-year-old male who presented to the ED on 08/23/2024 due to vomiting episodes. Patient was admitted for management of upper GI bleed, EtOH use disorder, RADHA of CKD, and high anion gap metabolic acidosis. PMHX: All Active Problems (Updated 08/23/24 @ 16:48 by Vazquez Pardo) GERD (gastroesophageal reflux disease) (Chronic) DVT prophylaxis (Acute) Acute kidney injury superimposed on CKD (Acute) Anemia (Chronic) Upper GI bleed (Acute) Alcohol use disorder (Acute) Atrial fibrillation (Chronic) Medical History (Updated 08/23/24 @ 16:48 by Vazquez Pardo) Squamous cell carcinoma of tonsils Spinal stenosis Hypertension BPH loc w urin obs/LUTS CKD stage 3a, GFR 45-59 ml/min Hepatocellular carcinoma Gastric varices Cirrhosis, alcoholic Surgical History (Updated 08/23/24 @ 16:44 by Vazquez Pardo) Status post neck dissection tonsilectomy and resection of cancer S/P hernia repair History of liver excision laproscopic partial hepatectomy for HCC 07/20/24 [facility] Social History/Home Situation: Lives with in a priavte home. Independent with SPC indoors and outdoors for all mobility ADLs Equipment Owned/DME: FWW, SPC Subjective: Agreeable to session/consult. Objective: General Observation: Resting in bed. Telemetry monitoring in place. Mental Status: Alert and oriented as to person, place, time, and purpose. Able to pay attention, focus, and respond appropriately. Pain: None reported Vital Signs: Closely monitored by nursing staff ROM: Right Upper Extremity: Shoulder Flexion WFL. Shoulder abduction WFL. Elbow flexion WFL. Wrist flexion WFL. Functional opening and closing of hand WFL. Left Upper Extremity: Shoulder Flexion WFL. Shoulder abduction WFL. Elbow flexion WFL. Wrist flexion WFL. Functional opening and closing of hand WFL. Right Lower Extremity: Hip flexion WFL. Hip abduction WFL. Knee flexion WFL. Ankle dorsiflexion WFL. Ankle plantarflexion WFL. Left Lower Extremity: Hip flexion WFL. Hip abduction WFL. Knee flexion WFL. Ankle dorsiflexion WFL. Ankle plantarflexion WFL. Strength: Right Upper Extremity: Shoulder flexors 4-/5. Shoulder abductors 4-/5. Elbow flexors 4-/5. Elbow extensors 4-/5. Telecommunications Repairer strong. Left Upper Extremity: Shoulder flexors 4-/5. Shoulder abductors 4-/5. Elbow flexors 4-/5. Elbow extensors 4-/5. Telecommunications Repairer strong. Right Lower Extremity: Hip flexors 4-/5. Hip abductors 4-/5. Knee flexors 4-/5. Knee extensors 4-/5. Ankle dorsiflexors 4-/5. Ankle plantarflexors 4-/5. Left Lower Extremity: Hip flexors 4-/5. Hip abductors 4-/5. Knee flexors 4-/5. Knee extensors 4-/5. Ankle dorsiflexors 4-/5. Ankle plantarflexors 4-/5. Bed Mobility/Transfers: Minimal cueing provided for use of B hands as needed for support, movement sequence, AD management, and posture to reduce fall risk and minimize pain report Rolling independent Supine to sit supervision Sit to supine supervision Sit to stand stand by assist with FWW Stand to sit stand by assist with FWW Bed to reclining chair stand by assist with FWW Reclining chair to bed stand by assist with FWW Gait: Facilitated safe and correct performance of level surface ambulation covering a distance of 125 feet + 125 feet using the FWW with stand by assist and minimal verbal cueing for AD management, movement sequence, and posture. No LOB. No SOB. Stairs: Guided safe and correct negotiation of 3 x 4-inch step and 2 x 6-inch steps w hile holding onto B rails for support with [id number] pattern with minimal verbal cues for for hand placement, posture, and limb movement sequence. Balance: Static Sitting: Normal Dynamic Sitting: Normal Static Standing: Fair Dynamic Standing: Fair 4-Stage balance test: Feet together 10 seonds Semi tandem 10 seconds Full tandem 5 seconds One-legged stance 5 seconds Special Tests: Mobility Limitations Standardized Measure [facility] AM-PAC 6 clicks Basic Mobility Inpatient Short Form: Raw Score: 21 CMS Score: 29% deficit Informed Consent/Education: Patient was instructed in purpose of PT consult and plan of care. Agreeable to proceed with established PT POC to achieve personal goals. Assessment: Patient presents with clinical signs and symptoms consistent with current/admitting diagnoses that have resulted to mobility limitations, gait instability, generalized weakness, and overall ADL decline as demonstrated by the following impairment level findings: 1. Decreased strength to B UE/LE major muscle groups 2. Impaired sitting/standing balance 3. Impaired activity tolerance Impairments are contributing to the following functional limitations: 1. Decline in bed mobility skills 2. Decline in transfer skills 3. Difficulty with ambulation without assistive device and physical assistance 4. Increased completion time for mobility ADL performance 5. Increased risk for falls Patient is assessed as a 46094 moderate complexity based on the following: History: 73 [id number] male with past medical history as indicated above Examination: Demonstrable impairment in strength, balance, and mobility level with underlying impairments and functional limitations as exhibited above as well as deficit score of 29% utilizing the [facility] Mobility Inpatient Short Form Presentation: Evolving Decision Makin moderate complexity Goals: Goals X1 week 1. Supine-Sit independent 2. Sit-Supine independent 3. Sit-Stand independent 4. Stand-Sit independent with FWW 5. Bed-Chair independent with FWW 6. Chair-Bed independent with FWW 7. Independent gait on level surface with use of FWW for at least 300 feet without report of pain nor dyspnea 8. Independent stair negotiation while holding onto B rails for at least 3 steps without report of pain nor dyspnea 9. Independent with home exercise program 10. Good static and dynamic standing balance/tolerance Plan of Care/Treatment Plan: 1-2x/day, 7 days/week x 1 week. Plan of care has been reviewed with the DERMATOLOGIST MANAGING PARTNER providing the service under Physical Therapy direction. Initiate Physical Therapy intervention for pain management as needed, strengthening, bed mobility, transfers, gait, stairs, balance training, and use of assistive device. DISCHARGE RECOMMENDATIONS: PT TREATMENT CODE/TIME: 70498 x 20 minutes for 1 unit. 79179 x 13 minutes for 1 unit (11:17-11:50). Thank you for the opportunity to participate in the care of this patient. Estella Valladares PT, DPT, CLT [facility] [place], [place]
[2024-08-26 13:32] VITALS: BP 142/89; PULSE 72; RESP 16; TEMP 36.5; O2SAT 97
--- NOTE | 2024-08-26 14:27 | OTIE_ITS ---
Occupational Therapy Notes Inpatient Occupational Therapy Evaluation Date: 08/26/24 Referring Doctor: Damian Horowitz OT Orders: Non urgent Precautions: Fall, STandard, DNI PATIENT PROFILE/ADMITTING DIAGNOSIS: Pt is a 73 year old male who was admitted to [facility] Surg the the following dx of high anion gap metabolic acidiosis, GERD, DVT prophylaxis, acute kidney injury superimposed on CKD, anemia, upper GI bleed, alcohol use disorder and Atrial Fibrillation. Past Medical History: All Active Problems (Updated 08/23/24 @ 16:48 by Vazquez Pardo) GERD (gastroesophageal reflux disease) (Chronic) DVT prophylaxis (Acute) Acute kidney injury superimposed on CKD (Acute) Anemia (Chronic) Upper GI bleed (Acute) Alcohol use disorder (Acute) Atrial fibrillation (Chronic) Medical History (Updated 08/23/24 @ 16:48 by Vazquez Pardo) Squamous cell carcinoma of tonsils Spinal stenosis Hypertension BPH loc w urin obs/LUTS CKD stage 3a, GFR 45-59 ml/min Hepatocellular carcinoma Gastric varices Cirrhosis, alcoholic Surgical History (Updated 08/23/24 @ 16:44 by Vazquez Pardo) Status post neck dissection tonsilectomy and resection of cancerS/P hernia repair History of liver excision laproscopic partial hepatectomy for HCC 07/20/24 [facility] Social History/Home Situation: Pt and his are in the room during consult. They report that pt is (I) with his ADL/IADL routines and that most of his current level of function deficits have to do with his strength at this time. He does have a shower seat, grab bars and has modified his ADL/IADL routines since a hip surgery. He still goes up and down the stairs at home. His works outside parts sales and he is able to get meals and take care of himself. Equipment owned/DME: FWW, Cane, Shower seat, grab bars SUBJECTIVE: Pt was lying in bed with his present in the room. He notes that he is (I) and working on eating more (working with mva reactor operator) and strengthening to be more (I) with his day to day routines. OBJECTIVE: General Observation: Pleasant, IV and BP cuff on UE Mental Status: A&Ox3 Pain: no c/o pain during OT consult ROM: RUE AROM WFL L UE AROM WFL STRENGTH: RUE Shoulder flexion 4/5, bicep 5/5, tricep 5/5, industrial electrician is strong and symmetrical LUE Shoulder flexion 4+/5, bicep 5/5, tricep 4+/5, industrial electrician is strong and symmetrical FUNCTIONAL MOBILITY/ADLS: BATHING Pt states that he performed this with nursing prior Bathing UE (I) with ideal AROM of (B) UE to perform this Bathing LE (I) with ideal AROM of (B) UE to perform this DRESSING Increased performance time for LE dressing but denies the need for sock aid or other adaptive equipment at this time. GROOMING (I) TOILETING Pt notes that nursing does (A) with this but OT recommends that he do this as (I) as possible moving forward EATING (I) BALANCE: Static sitting Normal Dynamic Sitting Good SPECIAL TESTS: Daily Activity Limitations Standardized Measure [facility] AM -PAC ?6 clicks? Daily Activity Inpatient Short Form: Raw score: 21 Standardized score: 44.27 CMS score: 32.79% INFORMED CONSENT/EDUCATION: Pt instructed in purpose of OT Consult and plan of care. ASSESSMENT: Patient is a 73-year-old male referred to occupational therapy services with diagnosis of high anion gap metabolic acidiosis, GERD, DVT prophylaxis, acute kidney injury superimposed on CKD, anemia, upper GI bleed, alcohol use disorder and Atrial Fibrillation. Patient presents with clinical signs and symptoms consistent with dx. Pt was seen for OT consult and feels that he is at a place where he will not need skilled OT services at this time. He describes a lot of his issues d/t strength and would like to continue to work on strengthening with PT and functional mobility. At this time OT will plan to discharge pt from skilled OT services by pts request. AMPA score 21 Patient is assessed as a Low 84220 complexity based on the following: History: see above Examination: see functional limitations as noted above Presentation: evolving Decision Making: AMPAC score 21 GOALS N/A PLAN OF CARE/TREATMENT PLAN: See for OT consult only. Pt feels that at this time he will not need OT services as he is at his baseline level of function. Discharge pt from skilled OT services. DISCHARGE RECOMMENDATIONS OT recommends that pt return home with HHPT services for strengthening when medically cleared per MD. TREATMENT TIME/MINUTES/CODES 55216, 25 minutes Ronna Loco OTR/L [facility] [place], [place]
--- NOTE | 2024-08-26 16:49 | PGE_ITS ---
Date of Service Date of service: 08/26/24 Time of Service: 14:00 Assessment and Plan Assessment and plan (1) High anion gap metabolic acidosis: Status: Acute Assessment and plan: Elevated anion gap on arrival, improving after bicarb given August 25 Added fluid boluses August 25 for RADHA, now improved Continue IV fluids, now LR @ 100 Taper off with increased PO intake (2) Upper GI bleed: Status: Acute Assessment and plan: Resolved. Fall in hemoglobin from 11's to 8's consistent with dilution. Appreciate general surgery assessment If patient requires EGD, will need higher level of care Discussed with GI at [facility], they want assessment of active bleeding for transfer. No active bleeding. (3) Anemia: Status: Chronic Assessment and plan: Hemoglobin 11.6 on arrival, falling to 8's on August 24 Likely dilutional, continue monitoring No transfusion at this time (4) Acute kidney injury superimposed on CKD: Status: Acute Assessment and plan: Creatinine below 3 again Worsening was likely due to dehydration Improved with fluid boluses Last known creatinine baseline 1.4 in February 2023 Likely due to worsening chronic disease as well as RADHA from dehydration (5) Atrial fibrillation: Status: Chronic Assessment and plan: Chronic, currently rate controlled on beta clara (6) Alcohol use disorder: Status: Acute Assessment and plan: Chronic, discussed cessation. Very high risk of and worsening disease with any continued drinking. (7) Cirrhosis, alcoholic: Assessment and plan: Compensated clinically with Child Barker 6/class A. Unclear if he has current portal HTN. He is on selective beta clara, suggesting he does not have portal HTN currently. (8) BPH loc w urin obs/LUTS: Assessment and plan: Adequate urine output on tamsulosin (9) DVT prophylaxis: Status: Acute Assessment and plan: SCDs only due to recent bleed Subjective Subjective Interval history since last seen: Mr Johnson is awake and alert, hungry. His eyes are dry. He wants to go home. Exam Narrative Exam Narrative: General: This is a pleasant man in no distress HEENT: Normocephalic. Scars on neck from surgeries, no masses. Edentulous with dentures. CV: RRR Resp: CTAB Abd: diffusely tender in all 4 quadrants. Hypoactive bowel sounds MSK: voluntary motion x4 Skin: warm and dry, no jaundice Neuro: Awake and alert without focal deficits Objective Last Vital Signs Temp 36.5 C 08/26/24 13:32 Pulse 72 08/26/24 13:32 Resp 16 08/26/24 13:32 BP 142/89 H 08/26/24 13:32 Pulse Ox 97 08/26/24 13:32 Laboratory Results - last 24 hr 08/26/24 08/26/24 06:35 06:50 WBC 1.76 L* RBC 2.53 L Hgb 8.2 L Hct 24.4 L MCV 96 H MCH 32.4 MCHC 33.6 RDW 15.5 H Plt Count 89 L MPV 8.9 PT 11.7 H INR 1.2 H Sodium 141 Potassium 3.4 L Chloride 109 H Carbon Dioxide 20.8 L Anion Gap 11.2 H BUN 36 H Creatinine 2.8 H Est GFR (CKD-EPI 2020) 23.24 Glucose 119 H Calcium 8.1 L Total Bilirubin 0.5 AST 23 ALT 14 L Alkaline Phosphatase 127 H Total Protein 4.9 L Albumin 1.9 L PAWSS Have you Been Recently Intoxicated or Drunk Within the Last 30 days?: No Have you Ever Experienced Previous Episodes of Alcohol Withdrawal?: No Have you ever Experienced Withdrawal Seizures?: Yes Have you ever Experienced Delirium Tremens(DT)s?: Yes Have you ever undergone Alcohol Rehabilitation Treatment (i.e, inpt ot outpatient treatment programs)?: Yes Have you ever Experienced Blackouts?: Yes Have you ever Combined Alcohol with other Downers within the last 90 days?: No Have you ever Combined Alcohol with any other Substance of Abuse during the last 90 days?: No Positive Blood Alcohol level on Presentation? [PCS.BAL]: Unable to Obtain Evidence of Increased Autonomic Activity (i.e. HR>120, tremor, sweating, agitation, nausea)?: No Result: 4 Time Spent with Patient Time Spent with Patient: 25-34 minutes Time was spent: preparing to see the patient(eg.review tests), obtaining and/or reviewing separately otained hiistory, ordering medications,tests, procedures, referring, communicating with other health medicare sales representative, indepentently interpreting results, counseling the patient and care coordination
[2024-08-26] MEDS: Refresh PLUS Eye Drops 0.4ml 1 EACH OU (18:35)
--- NOTE | 2024-08-26 18:35 | CMPROGNOTE_ITS ---
Date of service: 08/26/24 Time of Service: 18:35 Care Management Progress Note Progress Note Text Progress Note Text: Emile was on the commode when CM attempted to meet with him today. Per report, he is reporting pain with swallowing and is having poor intake. He was evaluated by PT and OT today, and both recommend HH services upon discharge. Per report, his will transport him home when ready; she was present for the OT evaluation today. CM will continue to follow. Discharge Potential Discharge Needs: PCP F/U Appt Anticipated Barriers to Discharge: None Identified Patient/Family Education Needs: Review discharge instructions, discuss Ask Me Three Transportation: Private vehicle Plan: Anticipate Emile will return home once medically cleared. HH PT and OT services are recommended upon discharge. His will drive him home via private vehicle. He will follow up with his PCP and discharge plan of care. CM will continue to follow. Social Determinants of Health Screening Social Determinants of health last assessed in clinic: 08/26/24 Will the Patient Participate in the Screening?: Yes Do you worry about having a steady place to live?: no Problems where you live: no known problems In the past 12 months, have you had to go without electric, gas, oil or water in your home?: no 1. Within the past 12 months, we worried whether our food would run out before we got money to buy more.: Don't know/refused 2. Within the past 12 months, the food we bought just didn't last and we didn't have money to get more.: Don't know/refused Has lack of transportation kept you from medical appointments or from doing things needed for daily living?: no Has anyone in your life made you feel unsafe or unsupported?: no How hard is it for you to pay for the very basics like food, housing, medical c are, and heating? Would you say it is:: Not hard at all Do you want help finding or keeping work or a job?: I do not need or want help If for any reason you need help with day-to-day activities such as bathing, preparing meals, shopping, managing finances, etc., do you get the help you need?: I don?t need any help How often do you feel lonely or isolated from those around you?: Sometimes Do you speak a language other than Serbian at home?: No Does the patient want assistance with any of the above?: No Health Related Social Needs Health related social needs: feeling lonely/isolated (Z60.8) Health related social needs details: Has support group
[2024-08-26 19:59] VITALS: BP 142/96; PULSE 73; RESP 18; TEMP 37; O2SAT 97
[2024-08-26] MEDS: Tamsulosin 0.4 MG CAPCR PO (20:49)
[2024-08-26 23:24] VITALS: BP 137/92; PULSE 79; RESP 20; TEMP 37.1; O2SAT 95
[2024-08-27] MEDS: Refresh PLUS Eye Drops 0.4ml 1 EACH OU ×4 (00:03→11:48)
[2024-08-27] MEDS: Lactated Ringers 1,000 ML 100 ML IV (02:16)
[2024-08-27] MEDS: Normal Saline Flush 10 ML SYR IVP ×2 (05:37→08:47)
[2024-08-27 06:23] VITALS: BP 154/102; PULSE 72; RESP 18; TEMP 36.9; O2SAT 97
[2024-08-27 07:40] LABS: PTT Activated 25.6 sec (20.6-30.2)
[2024-08-27 07:53] LABS: ALT 12 U/L (16-63); AST 21 U/L (15-37); Albumin 1.8 g/dL (3.4-5.0); Alkaline Phosphatase 119 U/L (46-116); Anion Gap 10.2 mmol/L (3-11); BUN 33 mg/dL (7-18); Bilirubin, Total 0.5 mg/dL (0.2-1.0); CO2 21.8 mmol/L (21.0-32.0); Calcium 8.0 mg/dL (8.5-10.1); Chloride 109 mmol/L (98-107); Estimated GFR 23.24 (mL/min/1.73m2); Glucose 110 mg/dL (74-106); Magnesium 1.5 mg/dL (1.8-2.4); Potassium 3.2 mmol/L (3.5-5.1); Sodium 141 mmol/L (136-145); Total Protein 4.5 g/dL (6.4-8.2)
[2024-08-27 07:54] VITALS: BP 150/94; PULSE 72; RESP 16; TEMP 36.5; O2SAT 99
[2024-08-27 08:06] LABS: Abs Immature Grans 0.06 10^3/uL (0.0-0.06); HCT 23.0 % (40.0-50.0); HGB 7.6 g/dL (13.5-17.5); Immature Grans % 3.9 %; MCH 31.8 pg (27.0-33.0); MCHC 33.0 % (32.0-36.0); MCV 96 fL (80-95); MPV 10.0 fL (8.0-11.0); RBC 2.39 10^6/uL (4.36-5.78); RDW 15.6 % (11.8-14.1); RDW-SD 54.4 fL
[2024-08-27 08:24] LABS: Platelet Count 80 10^3/uL (130-400); RBC Morphology Normal
[2024-08-27 08:34] LABS: WBC 1.53 10^3/uL (4.4-10.8)
[2024-08-27] MEDS: Pantoprazole 40 MG VIAL IVP (08:47)
[2024-08-27] MEDS: Metoprolol CR 100 MG TABCR PO (08:48)
[2024-08-27] MEDS: MAGNESIUM SULFATE 2 GM/50 ML BAG IV_INF (09:58)
[2024-08-27 10:09] LABS: Iron 22 ug/dL (65-175); Total Iron Binding Capacity 141 ug/dL (250-450); Transferrin Sat 16 % (20-55)
[2024-08-27 10:23] LABS: Ferritin 609 ng/mL (26-388)
--- NOTE | 2024-08-27 11:09 | PTTR_ITS ---
PT Notes Visit Reasons: Vomiting, RADHA Physical Therapy Inpatient Initial Treatment Note Date: 08/27/2024 Precautions: Fall. Standard. Activity as tolerated. Subjective: Said that he may go home today. Feels stronger. Slept better last night. Appreciative of having his cane fitted to his height. Objective: General Observation: Resting in bed. Telemetry monitoring in place. Mental Status: Alert and oriented as to person, place, time, and purpose. Able to pay attention, focus, and respond appropriately. Pain: None reported Vital Signs: Closely monitored by nursing staff Bed Mobility/Transfers: Minimal cueing provided for use of B hands as needed for support, movement sequence, AD management, and posture to reduce fall risk and minimize pain report Rolling independent Supine to sit supervision Sit to supine supervision Sit to stand supervision with FWW Stand to sit supervision with FWW Bed to reclining chair supervision with FWW Reclining chair to bed supervision with FWW Gait: Facilitated safe and correct performance of level surface ambulation covering a distance of 250 feet using the FWW with stand by assist and minimal verbal cueing for AD management, movement sequence, and posture. No LOB. No SOB. Stairs: Guided safe and correct negotiation of 3 x 4-inch step and 2 x 6-inch steps while holding onto B rails for support with [id number] pattern with minimal verbal cues for for hand placement, posture, and limb movement sequence. Balance: Static Sitting: Normal Dynamic Sitting: Normal Static Standing: Fair Dynamic Standing: Fair Assessment: Activity tolerance and stability with ambulation was much improved with use of front-wheeled walker. Gait speed improved. No LOB. No SOB. Plan of Care/Treatment Plan: 1-2x/day, 7 days/week x 1 week. Plan of care has been reviewed with the SENIOR COMPLIANCE OFFICER providing the service under Physical Therapy direction. Initiate Physical Therapy intervention for pain management as needed, strengthening, bed mobility, transfers, gait, stairs, balance training, and use of assistive device. DISCHARGE RECOMMENDATIONS: PT TREATMENT CODE/TIME: 18099 x 31 minutes for 1 unit (11:09-11:40).
[2024-08-27] MEDS: FERRIC CARBOXYMALTOSE 750 MG in Normal Saline 250 ML 1000 MG IVPB (11:39)
[2024-08-27] MEDS: Thiamine 100 MG TAB PO (11:43)
--- NOTE | 2024-08-27 13:47 | DSE_ITS ---
Date of service: 08/27/24 Time of Service: 12:00 DS: Diagnosis Discharge Diagnosis (1) High anion gap metabolic acidosis: Status: Resolved Asessment and Plan: levated anion gap on arrival, improving after bicarb given August 25 Added fluid boluses August 25 for RADHA, with improvement IV fluids continued and tapered off with improved PO intake Acidosis resolved (2) Upper GI bleed: Status: Resolved Asessment and Plan: Fall in hemoglobin from 11's to 8's consistent with dilution. Appreciate general surgery assessment If patient requires EGD, will need higher level of care Discussed with GI at [facility], they want assessment of active bleeding for transfer. No active bleeding. (3) Anemia: Status: Chronic Asessment and Plan: Hemoglobin 11.6 on arrival, falling to 8's on August 24 Likely dilutional, continue monitoring No transfusion done (4) Acute kidney injury superimposed on CKD: Status: Acute Asessment and Plan: Creatinine below 3 again Worsening was likely due to dehydration Improved with fluid boluses Last known creatinine baseline 1.4 in February 2023 Likely due to worsening chronic disease as well as RADHA from dehydration (5) Atrial fibrillation: Status: Chronic Asessment and Plan: Chronic, currently rate controlled on beta clara (6) Alcohol use disorder: Asessment and Plan: Chronic, discussed cessation. Very high risk of and worsening disease with any continued drinking. (7) Cirrhosis, alcoholic: Asessment and Plan: Compensated clinically with Child Barker 6/class A. Unclear if he has current portal HTN. He is on selective beta clara, suggesting he does not have portal HTN currently. (8) BPH loc w urin obs/LUTS: Asessment and Plan: Adequate urine output on tamsulosin Discharge Plan Disposition Patient Disposition: Home W/Home Health Services Condition: Poor Discharge Details Reason For Visit: Vomiting, RADHA Admit Date/Time: 08/23/24 15:26 Admit Provider: Vazquez Pardo Attending Provider: Vazquez Pardo Primary Care Provider: Kelsy Hardin Hospital Course Hospital Course: Emile Johnson is a 73 year old man presenting August 23 with vomiting, in the setting of known hepatic cancer, oropharyngeal cancer with care at [facility]. He was admitted for evaluation of GI bleed without evidence of severe blood loss anemia, and started on octreotide. Overnight his vomiting continued without any blood, and he continued to need medication for nausea and emesis. He continued to be hospitalized for dehydration with RADHA which improved with fluids and nutrition. His pancytopenia worsened with dilution, but he did not require a blood transfusion. On day of discharge he was given IV iron, magnesium and potassium. He was evaluated by PT and is at baseline. Home Meds and New Rx's Prescriptions: New vit B htmq-[id number]-iron sulf-Alpa 500 mg-400 mcg- 27 mg iron tablet 1 tab PO DAILY AM Qty: 90.0 0RF Continued diltiazem HCl 360 mg capsule,extended release 24hr 360 mg PO DAILY Patient Comments: TAKE ONE CAPSULE BY MOUTH EVERY DAY valsartan 320 mg tablet 320 mg PO DAILY Patient Comments: TAKE 1 TABLET BY MOUTH ONCE DAILY tamsulosin 0.4 mg capsule 0.4 mg PO HS Patient Comments: TAKE 1 CAPSULE BY MOUTH EVERY NIGHT metoprolol succinate 100 mg tablet extended release 24 hr 100 mg PO DAILY Patient Comments: TAKE ONE TABLET BY MOUTH EVERY DAY pantoprazole 40 mg tablet,delayed release (DR/EC) 40 mg PO DAILY Patient Comments: TAKE ONE TABLET BY MOUTH EVERY DAY potassium chloride [Klor-Con] 20 mEq packet 20 meq PO DAILY Patient Comments: DISSOLVE THE CONTENTS OF 1 PACKET IN WATER AND DRINK BY MOUTH TWO TIMES A DAY DIRECTED Discharge Instructions Stand Alone Forms: Nursing Discharge Form Referrals: Kelsy Hardin [Primary Care Provider, Medicine] - 09/13/24 3:00 pm Activity:: Activity as Tolerated Equipment/Supplies:: No Equipment Needed Diet:: As Tolerated Discharge Orders Discharge Orders: Discharge Order (Routine); Ordered 08/27/24 Ordered By: Damian Horowitz Discharge Data Discharge Date/Time-TO BE ENTERED AT DEPARTURE: 08/27/24 14:34 DS: Summary Time Spent with Patient providing and/or coordinating discharge services: Greater than 30 minutes Status at Discharge Functional status at discharge: uses cane/walker Overall status at discharge: patient is back to baseline Mental Status: mental status grossly normal Speech and Movement: speech and movement normal Mood: congruent mood Affect: normal affect Quality:SDOH Health Related Social Needs: Health related social needs lonely/isolated Health related social needs details Has support group Health related social needs details: Has support group Exam Narrative Exam Narrative: General: This is a pleasant man in no distress HEENT: Normocephalic. Scars on neck from surgeries, no masses. Edentulous with dentures. CV: RRR Resp: CTAB Abd: diffusely tender in all 4 quadrants. Hypoactive bowel sounds MSK: voluntary motion x4 Skin: warm and dry, no jaundice Neuro: Awake and alert without focal deficits Psych Mental Status: mental status grossly normal Speech and Movement: speech and movement normal Mood: congruent mood Affect: normal affect DS: Data Vitals/I&O Vitals and I&O: Vital Signs Temperature 36.5 C 08/27/24 07:54 Temperature Source Temporal Artery Scan 08/27/24 07:54 Pulse 72 08/27/24 07:54 Pulse Rhythm Regular 08/23/24 17:01 Pulse 81 08/23/24 16:01 Respiratory Rate 16 08/27/24 07:54 Respiratory Effort Normal, Non-Labored 08/23/24 17:01 Respiratory Depth Normal 08/23/24 17:01 Respiratory Pattern Normal 08/23/24 17:01 Blood Pressure 150/94 H 08/27/24 07:54 Blood Pressure Mean 112 08/27/24 07:54 Pulse Oximetry 99 08/27/24 07:54 Oxygen Delivery Method Room Air 08/27/24 07:54 Oxygen Flow Rate 0 08/27/24 07:54 Pain Level 0 08/27/24 06:23 Comment rn notified 08/24/24 12:57 Intake & Output 08/26/24 08/27/24 08/27/24 23:59 11:59 23:59 Intake Total 980 / 6250.843 1138.667 / 2281.667 200 / 2281.667 Output Total 150 / 450 225 / 225 Balance 830 / 5942.246 5248.667 / 2056.667 200 / 2056.667 Intake: IV 980 / 5241.779 2811.667 / 1781.667 Oral 300 / 500 200 / 500 Output: Urine 150 / 450 225 / 225 Other: Urine Color Yellow Yellow Urine Appearance Clear Clear Urine Odor Normal Stool Size Small Stool Characteristics Soft Brown Data Completed and Pending Labs on day of discharge: Labs from last 24 hours 08/27/24 05:45 WBC 1.53 L* RBC 2.39 L Hgb 7.6 L Hct 23.0 L MCV 96 H MCH 31.8 MCHC 33.0 RDW 15.6 H Plt Count 80 L MPV 10.0 Reticulocyte % (Auto) 1.8 Immature Gran % 3.9 Neutrophils % 68.0 Lymphocytes % 16.3 Monocytes % 9.8 Eosinophils % 1.3 Basophils % 0.7 Nucleated RBC % 0.0 Absolute Neutrophils 1.04 L Absolute Lymphocytes 0.25 L Absolute Monocytes 0.15 Absolute Eosinophils 0.02 Absolute Basophils 0.01 RBC Morphology Normal APTT 25.6 Sodium 141 Potassium 3.2 L Chloride 109 H Carbon Dioxide 21.8 Anion Gap 10.2 BUN 33 H Creatinine 2.8 H Est GFR (CKD-EPI 2020) 23.24 Glucose 110 H Calcium 8.0 L Magnesium 1.5 L Iron 22 L TIBC 141 L Transferrin % Sat 16 L Ferritin 609 H Total Bilirubin 0.5 AST 21 ALT 12 L Alkaline Phosphatase 119 H Total Protein 4.5 L Albumin 1.8 L PFSH All Active Problems (Updated 08/28/24 @ 00:01 by KEON MEZA) GERD (gastroesophageal reflux disease) (Chronic) Acute kidney injury superimposed on CKD (Acute) Anemia (Chronic) Atrial fibrillation (Chronic) Medical History Squamous cell carcinoma of tonsils Spinal stenosis Hypertension BPH loc w urin obs/LUTS CKD stage 3a, GFR 45-59 ml/min Hepatocellular carcinoma Gastric varices Cirrhosis, alcoholic Surgical History Status post neck dissection tonsilectomy and resection of cancer S/P hernia repair History of liver excision laproscopic partial hepatectomy for HCC 07/20/24 [facility] Social History Smoking/Tobacco Use Status: Never Smoking risk assessment performed?: Yes Alcohol Intake: current Alcohol Intake frequency: 0-2 drinks per day Drug use: Occasionally Substance use type: marijuana Housing: house Additional Social history: Lives with in [facility] Time Spent with Patient Time Spent with Patient: <45 minutes Time was spent: preparing to see the patient(eg.review tests), obtaining and/or reviewing separately otained hiistory, ordering medications,tests, procedures, r eferring, communicating with other health nonfarm animal caretaker, indepentently interpreting results, counseling the patient and care coordination
--- NOTE | 2024-08-27 13:48 | PDOC.HHF2F_ITS ---
Home Health Referral Home Health Orders Clinical synopsis of why skilled professionals are needed: Complex active medical conditions requiring frequent status checks, medication administration, and management of specialist care Medical diagnosis necessitation home health referral: hepatocellular carcinoma Registered Nurse: Check all that apply Instruct on new or changed medication(s)/assess compliance: Ordered Assess for exacerbation of medical condition, instruct patient/caregivers on signs and symptoms to report for early detection: Ordered Physical Therapist: Check all that apply Increase strength & endurance for safe mobility at home: Ordered To design/establish home maintenance program: Ordered Fall reduction therapy program for patient with history of frequent falls: Ordered Occupational Therapist: Evaluate and treat for patient unable to perform ADL/IADL/self-care: Ordered Upper extremity strengthening, range and motion: Ordered Manager Immunology: Assist with penitentiary care planning: Ordered Home Bound Status Requires the aid of supportive device (check all that apply): Walker Encounter Date and Reason: I certify that a FTF encounter for this patient was performed on August 27, 2024 and that such encounter was related to the primary reason the patient requires home health services. The encounter was conducted in the following manner: * By me as the certifying physician, FIREARMS ASSEMBLY SUPERVISOR, PA or * By an inpatient physician, FIREARMS ASSEMBLY SUPERVISOR or PA during an inpatient stay who communicated findings to me, Certification And Authentication I certify that I composed the above information based on my clinical judgment relating to this patient's medical condition and, if applicable, clinical findings communicated to me by the NPP or inpatient physician who performed the FTF encounter. Name of Provider that will be monitoring home health services: Kelsy Hardin
--- NOTE | 2024-08-27 15:19 | PDOC.CMDIS ---
Date of service: 08/27/24 Time of Service: 15:19 LACE Index Scoring Tool Questions: Length of Stay (in days): 4 - 6 Was the patient admitted via the E.D.?: Yes Comorbidities: Liver or Renal Disease E.D. Visits: 0 Answers: Total Score: 12 Risk of Readmission: High Risk Care Management Discharge Plan Reason for Hospitalization: vomiting, RADHA Discharge Plan: Emile returned home today with new orders for HH PT; CM communicated this with [facility]. His drove him home via private vehicle. He will follow up with his PCP and discharge plan of care. He was happy to be going home; he stated that he was able to get better rest last night and he is feeling much better today. Patient/Family Education Needs: Review discharge instructions and limitations, discussion of self care needs including ask me three. Services Needed at Discharge: Home Health Care Services (new HH PT) SDOH Health Related Social Needs: Health related social needs lonely/isolated Health related social needs details Has support group Health related social needs details: Has support group
== END 2024-08-27 14:34 | disposition home health service (06) ==
LOC: ER 15:18 → MS 16:36
PROVIDERS: Admitting Provider Family Medicine; Emergency Provider Emergency Medicine; PCP Nurse Practitioner Family; Responsible Provider Family Medicine; Visit Provider Family Medicine
DX: K92.0 Hematemesis (principal); N17.9 Acute kidney failure, unspecified; E87.21 Acute metabolic acidosis; K70.30 Alcoholic cirrhosis of liver without ascites; I86.4 Gastric varices; E86.0 Dehydration; D50.0 Iron deficiency anemia secondary to blood loss (chronic); F10.10 Alcohol abuse, uncomplicated; R73.9 Hyperglycemia, unspecified; K21.9 Gastro-esophageal reflux disease without esophagitis; I48.91 Unspecified atrial fibrillation; I12.9 Hypertensive chronic kidney disease with stage 1 through stage 4 chronic kidney disease, or unspecified chronic kidney disease; N40.1 Benign prostatic hyperplasia with lower urinary tract symptoms; N13.8 Other obstructive and reflux uropathy; N18.31 Chronic kidney disease, stage 3a; C22.0 Liver cell carcinoma; F12.90 Cannabis use, unspecified, uncomplicated; D61.818 Other pancytopenia; Z79.899 Other long term (current) drug therapy; Z85.89 Personal history of malignant neoplasm of other organs and systems
CPT/HCPCS: 00123; 36410; 36415; 80048; 80053; 83690; 85027; 86850; 86900; 86901; 96361; 96365; 96375; 96376; 97162; 97165; 97530; 99222; 99285; 80320; 81003; 81015; 82728; 83540; 83550; 83605; 83735; 85014; 85018; 85025; 85045; 85610; 85730; 99223; 99232; 99239; G0378; J1439; J1815; J2354; J2405; J2470; J3475

== ENCOUNTER 2024-09-13 13:09 | Outpatient (REF) | payer MEDICARE, SELFPAY ==
[2024-09-13 16:14] LABS: Anion Gap 13.6 mmol/L (3-11); BUN 20 mg/dL (7-18); CO2 18.4 mmol/L (21.0-32.0); Calcium 8.5 mg/dL (8.5-10.1); Chloride 104 mmol/L (98-107); Estimated GFR 31.05 (mL/min/1.73m2); Glucose 93 mg/dL (74-106); Magnesium 1.4 mg/dL (1.8-2.4); NT-proBNP 16657 pg/mL (<300); Potassium 3.4 mmol/L (3.5-5.1); Sodium 136 mmol/L (136-145)
== END 2024-09-13 13:10 | disposition home or self-care (01) ==
LOC: NCHCN 13:09
PROVIDERS: PCP Family Medicine; Visit Provider Family Medicine
DX: N18.4 Chronic kidney disease, stage 4 (severe) (principal); E83.42 Hypomagnesemia; D64.9 Anemia, unspecified
CPT/HCPCS: 80048; 83735; 83880

== ENCOUNTER 2024-09-30 10:22 | Outpatient (REF) | payer MEDICARE, SELFPAY ==
[2024-09-30 16:12] LABS: HCT 28.0 % (40.0-50.0); HGB 9.1 g/dL (13.5-17.5); MCH 31.0 pg (27.0-33.0); MCHC 32.5 % (32.0-36.0); MCV 95 fL (80-95); MPV 9.5 fL (8.0-11.0); Platelet Count 163 10^3/uL (130-400); RBC 2.94 10^6/uL (4.36-5.78); RDW 13.9 % (11.8-14.1); RDW-SD 48.2 fL; WBC 3.43 10^3/uL (4.4-10.8)
[2024-09-30 17:27] LABS: Anion Gap 9.3 mmol/L (3-11); BUN 20 mg/dL (7-18); CO2 25.7 mmol/L (21.0-32.0); Calcium 9.2 mg/dL (8.5-10.1); Chloride 99 mmol/L (98-107); Estimated GFR 26.63 (mL/min/1.73m2); Glucose 122 mg/dL (74-106); Sodium 134 mmol/L (136-145)
[2024-09-30 17:39] LABS: Potassium 6.0 mmol/L (3.5-5.1)
== END 2024-09-30 10:23 | disposition home or self-care (01) ==
LOC: NCHCN 10:22
PROVIDERS: PCP Family Medicine; Visit Provider Family Medicine
DX: N18.4 Chronic kidney disease, stage 4 (severe) (principal)
CPT/HCPCS: 80048; 85027

== ENCOUNTER 2024-10-01 16:49 | Outpatient (REF) | payer MEDICARE, SELFPAY ==
[2024-10-01 14:02] LABS: Anion Gap 12.5 mmol/L (3-11); BUN 23 mg/dL (7-18); CO2 23.5 mmol/L (21.0-32.0); Calcium 9.1 mg/dL (8.5-10.1); Chloride 98 mmol/L (98-107); Estimated GFR 22.29 (mL/min/1.73m2); Glucose 119 mg/dL (74-106); Potassium 5.8 mmol/L (3.5-5.1); Sodium 134 mmol/L (136-145)
== END 2024-10-01 16:50 | disposition home or self-care (01) ==
LOC: NCHCN 16:49
PROVIDERS: PCP Family Medicine; Visit Provider Family Medicine
DX: E87.5 Hyperkalemia (principal)
CPT/HCPCS: 80048

== ENCOUNTER 2024-10-15 15:29 | Outpatient (REF) | payer MEDICARE, SELFPAY ==
[2024-10-15 14:30] LABS: HCT 26.2 % (40.0-50.0); HGB 8.6 g/dL (13.5-17.5); MCH 30.9 pg (27.0-33.0); MCHC 32.8 % (32.0-36.0); MCV 94 fL (80-95); MPV 9.2 fL (8.0-11.0); Platelet Count 103 10^3/uL (130-400); RBC 2.78 10^6/uL (4.36-5.78); RDW 15.6 % (11.8-14.1); RDW-SD 54.4 fL; WBC 2.12 10^3/uL (4.4-10.8)
[2024-10-15 15:15] LABS: Anion Gap 11.8 mmol/L (3-11); BUN 46 mg/dL (7-18); CO2 24.2 mmol/L (21.0-32.0); Calcium 9.6 mg/dL (8.5-10.1); Chloride 99 mmol/L (98-107); Estimated GFR 21.40 (mL/min/1.73m2); Glucose 125 mg/dL (74-106); Potassium 4.3 mmol/L (3.5-5.1); Sodium 135 mmol/L (136-145)
== END 2024-10-15 15:30 | disposition home or self-care (01) ==
LOC: NCHCN 15:29
PROVIDERS: PCP Family Medicine; Visit Provider Family Medicine
DX: N18.4 Chronic kidney disease, stage 4 (severe) (principal)
CPT/HCPCS: 80048; 85027; 84100

== ENCOUNTER 2024-11-05 14:33 | Outpatient (REF) | payer MEDICARE, SELFPAY ==
[2024-11-05 21:19] LABS: HCT 25.3 % (40.0-50.0); HGB 9.0 g/dL (13.5-17.5); MCH 32.6 pg (27.0-33.0); MCHC 35.6 % (32.0-36.0); MCV 92 fL (80-95); MPV 8.2 fL (8.0-11.0); RBC 2.76 10^6/uL (4.36-5.78); RDW 15.8 % (11.8-14.1); RDW-SD 52.6 fL; WBC 2.94 10^3/uL (4.4-10.8)
[2024-11-05 21:24] LABS: Anion Gap 11.6 mmol/L (3-11); BUN 29 mg/dL (7-18); CO2 28.4 mmol/L (21.0-32.0); Calcium 9.4 mg/dL (8.5-10.1); Chloride 95 mmol/L (98-107); Estimated GFR 23.24 (mL/min/1.73m2); Glucose 185 mg/dL (74-106); Sodium 135 mmol/L (136-145)
[2024-11-05 21:39] LABS: Platelet Count 96 10^3/uL (130-400)
[2024-11-05 21:56] LABS: Potassium 2.8 mmol/L (3.5-5.1)
== END 2024-11-05 14:34 | disposition home or self-care (01) ==
LOC: NCHCN 14:33
PROVIDERS: PCP Family Medicine; Visit Provider Family Medicine
DX: N18.4 Chronic kidney disease, stage 4 (severe) (principal)
CPT/HCPCS: 80048; 85027

== ENCOUNTER 2024-11-08 15:17 | Outpatient (REF) | payer MEDICARE, SELFPAY ==
[2024-11-08 15:10] LABS: Potassium 3.6 mmol/L (3.5-5.1)
== END 2024-11-08 15:18 | disposition home or self-care (01) ==
LOC: NCHCN 15:17
PROVIDERS: PCP Family Medicine; Visit Provider Family Medicine
DX: E87.6 Hypokalemia (principal)
CPT/HCPCS: 84132

== ENCOUNTER 2024-11-18 14:35 | Outpatient (REF) | payer MEDICARE, SELFPAY ==
[2024-11-18 14:56] LABS: HCT 27.5 % (40.0-50.0); HGB 9.3 g/dL (13.5-17.5); MCH 32.2 pg (27.0-33.0); MCHC 33.8 % (32.0-36.0); MCV 95 fL (80-95); MPV 8.5 fL (8.0-11.0); Platelet Count 107 10^3/uL (130-400); RBC 2.89 10^6/uL (4.36-5.78); RDW 16.9 % (11.8-14.1); RDW-SD 58.8 fL; WBC 3.01 10^3/uL (4.4-10.8)
[2024-11-18 15:04] LABS: Anion Gap 12.8 mmol/L (3-11); BUN 23 mg/dL (7-18); CO2 24.2 mmol/L (21.0-32.0); Calcium 9.1 mg/dL (8.5-10.1); Chloride 98 mmol/L (98-107); Estimated GFR 27.97 (mL/min/1.73m2); Glucose 107 mg/dL (74-106); Potassium 3.9 mmol/L (3.5-5.1); Sodium 135 mmol/L (136-145)
== END 2024-11-18 14:36 | disposition home or self-care (01) ==
LOC: NCHCN 14:35
PROVIDERS: PCP Family Medicine; Visit Provider Family Medicine
DX: D64.9 Anemia, unspecified (principal); N18.4 Chronic kidney disease, stage 4 (severe)
CPT/HCPCS: 80048; 85027